=== PATIENT | female | born 1940 | race Caucasian/White ===

== ENCOUNTER → 2017-12-25 | Outpatient (CLI) | payer BC, MEDICARE ==
[~2017-12-25] MED LIST: ACET325 PO; ALPR.5; ALPR.5 PO; AMLO5 PO; ASPI81CH PO; AZO BLADDER CO300 MG PO; AZO URINARY PAI95 MG PO; Adult Low Dose81 MG PO; BISA10S PR; BISA5EC PO; BUSP10 PO; BUSP15 PO; CALCAVITD PO; CARV6.25 PO; CEPH250A PO; CHOL10002 PO; CIPR250 PO; CLON.5 PO; CLON1 PO; CLOP75 PO; Cranberry300 MG PO; DIGESTIVE ENZY1 EAC1; DOCU100 PO; DRON2.5 PO; DULO60; DULO60 PO; FAMO20 PO; FISH OIL 1,0001 EAC1 PO; FLUC150A PO; FLUO20 PO; Ferrous Sulfat325 M2 PO; GLIM2 PO; GLUCERNA237 ML; GLUCERNA237 ML PO; GUAI600T33 PO; HYDACE10B PO; HYDR1TAB94; HYDR1TAB94 PO; HYDRA25 PO; Hair, Skin & N1 EACH PO; Hydrocodone-Ap1 EA23 PO; KRILL OIL 1,001 EAC1 PO; LACT10SY PO; LEVO-T125 MCG PO; LEVSOD125 PO; LEVSOD175 PO; LOPE2C PO; LORA1SY PO; METF500 PO; METF500C PO; MIRALAX17 GM PO; MIRT15 PO; Macrobid 100 M100 MG PO; Mag-Al Liquid30 ML PO; NITR100 PO; NITR100CA PO; NYST100SU MT; OLAN2.5 PO; OLAN5 PO; OMEP20ER PO; OXYC5 PO; Omega 3 1,0001 EACH PO; Omeprazole20 M1 PO; POTCHL20ER PO; PRAV20 PO; Potassium99 MG PO; QUET25 PO; QUETIAPINE FUMA50 MG PO; TEMA15 PO; Ultram50 MG PO; VITAMIN D22000 UNIT PO
[2017-12-25 12:22] LABS: Bilirubin, Urine Neg (Neg); Blood, Urine Neg (Neg); Glucose Qualitative, Urine Neg (Neg); Ketones, Urine Neg (Neg); Leukocyte Esterase, Urine Neg (Neg); Nitrite, Urine Neg (Neg); Protein, Urine Neg (Neg); Urobilinogen, Urine NORM (Normal); pH, Urine 6.5 (5.0-8.0)
[2017-12-25 13:03] LABS: Appearance, Urine Clear (Clear); Color, Urine Yellow (P-Yellow)
== END ==
LOC: LAB 11:30
DX: R32 Unspecified urinary incontinence (principal)
CPT/HCPCS: 81003

== ENCOUNTER 2017-12-31 18:42 | Emergency (ER) | payer BC ==
[~2017-12-31] VITALS: Ht 162.6 cm; Wt 72.6 kg
[~2017-12-31 18:42] MED LIST changes: -ALPR.5 PO; -AZO BLADDER CO300 MG PO; -BISA10S PR; -BISA5EC PO; -BUSP15 PO; -CEPH250A PO; -CHOL10002 PO; -CLON1 PO; -FISH OIL 1,0001 EAC1 PO; -Ferrous Sulfat325 M2 PO; -GLUCERNA237 ML PO; -GUAI600T33 PO; -HYDR1TAB94 PO; -HYDRA25 PO; -KRILL OIL 1,001 EAC1 PO; -LORA1SY PO; -Macrobid 100 M100 MG PO; -Mag-Al Liquid30 ML PO; -QUET25 PO; -QUETIAPINE FUMA50 MG PO; -Ultram50 MG PO
[2017-12-31] MEDS ORDERED: BISA5EC PO (18:51)
[2017-12-31] MEDS ORDERED: KRILL OIL 1,001 EAC1 PO (18:53)
[2017-12-31] MEDS ORDERED: GLUCERNA237 ML PO (18:53)
[2017-12-31] MEDS ORDERED: LORA1SY PO (18:55)
[2017-12-31] MEDS ORDERED: GUAI600T33 PO (19:01)
[2017-12-31] MEDS ORDERED: CHOL10002 PO (19:02)
[2017-12-31] MEDS ORDERED: ACET325 PO (19:05)
[2017-12-31] MEDS ORDERED: ALPR.5 PO (19:06)
[2017-12-31] MEDS ORDERED: Mag-Al Liquid30 ML PO (19:14)
[2017-12-31] MEDS ORDERED: BISA10S PR (19:16)
== END 2017-12-31 21:03 | disposition home or self-care (01) ==
LOC: ER 18:42
DX: M79.81 Nontraumatic hematoma of soft tissue (principal); Z88.0 Allergy status to penicillin; Z88.1 Allergy status to other antibiotic agents; Z88.8 Allergy status to other drugs, medicaments and biological substances; Z79.899 Other long term (current) drug therapy; Z79.82 Long term (current) use of aspirin; Z79.891 Long term (current) use of opiate analgesic; Z79.84 Long term (current) use of oral hypoglycemic drugs; Z86.73 Personal history of transient ischemic attack (TIA), and cerebral infarction without residual deficits; E11.9 Type 2 diabetes mellitus without complications; F03.90 Unspecified dementia, unspecified severity, without behavioral disturbance, psychotic disturbance, mood disturbance, and anxiety
CPT/HCPCS: 29125; 73130; 99283; L3917

== ENCOUNTER → 2018-01-01 | Outpatient (CLI) | payer BC ==
[~2018-01-01] MED LIST changes: +ALPR.5 PO; +AZO BLADDER CO300 MG PO; +BISA10S PR; +BISA5EC PO; +BUSP15 PO; +CEPH250A PO; +CHOL10002 PO; +CLON1 PO; +FISH OIL 1,0001 EAC1 PO; +Ferrous Sulfat325 M2 PO; +GLUCERNA237 ML PO; +GUAI600T33 PO; +HYDR1TAB94 PO; +HYDRA25 PO; +KRILL OIL 1,001 EAC1 PO; +LORA1SY PO; +Macrobid 100 M100 MG PO; +Mag-Al Liquid30 ML PO; +QUET25 PO; +QUETIAPINE FUMA50 MG PO; +Ultram50 MG PO
[2018-01-02 10:47] LABS: Bilirubin, Urine Neg (Neg); Blood, Urine Neg (Neg); Glucose Qualitative, Urine Neg (Neg); Ketones, Urine Neg (Neg); Leukocyte Esterase, Urine 1+ (Neg); Nitrite, Urine Neg (Neg); Protein, Urine 1+ (Neg); Urobilinogen, Urine NORM (Normal)
[2018-01-02 11:00] LABS: Appearance, Urine Clear (Clear); Color, Urine Yellow (P-Yellow)
[2018-01-02 11:02] LABS: Bacteria Not Seen /hpf; Mucus Light (0-Heavy); Red Blood Cells, Urine Not Seen /hpf (0-2); Squamous Epithelial Cells Not Seen /hpf (Few); White Blood Cells, Urine 0-2 /hpf (0-5)
== END ==
LOC: OLS 09:23
DX: N39.0 Urinary tract infection, site not specified (principal)
CPT/HCPCS: 81001; 87086

== ENCOUNTER 2018-03-20 13:42 | Emergency (ER) | payer BC ==
[~2018-03-20] VITALS: Ht 167.6 cm; Wt 72.6 kg
[~2018-03-20 13:42] MED LIST changes: +AMLO5; -AZO BLADDER CO300 MG PO; -BUSP15 PO; -CEPH250A PO; -CLON1 PO; -FISH OIL 1,0001 EAC1 PO; -Ferrous Sulfat325 M2 PO; -HYDR1TAB94 PO; -HYDRA25 PO; -Macrobid 100 M100 MG PO; -QUET25 PO; -QUETIAPINE FUMA50 MG PO; -Ultram50 MG PO
[2018-03-20] MEDS ORDERED: AZO BLADDER CO300 MG PO (13:54)
[2018-03-20] MEDS ORDERED: HYDRA25 PO (13:58)
[2018-03-20] MEDS ORDERED: Ultram50 MG PO (18:59)
== END 2018-03-20 20:48 | disposition home or self-care (01) ==
LOC: ER 13:42
DX: S09.90XA Unspecified injury of head, initial encounter (principal); S42.215A Unspecified nondisplaced fracture of surgical neck of left humerus, initial encounter for closed fracture; S43.432A Superior glenoid labrum lesion of left shoulder, initial encounter; E11.9 Type 2 diabetes mellitus without complications; F03.90 Unspecified dementia, unspecified severity, without behavioral disturbance, psychotic disturbance, mood disturbance, and anxiety; Z88.0 Allergy status to penicillin; Z88.1 Allergy status to other antibiotic agents; Z88.8 Allergy status to other drugs, medicaments and biological substances; Z79.899 Other long term (current) drug therapy; Z79.82 Long term (current) use of aspirin; Z86.73 Personal history of transient ischemic attack (TIA), and cerebral infarction without residual deficits; Z79.84 Long term (current) use of oral hypoglycemic drugs; W01.0XXA Fall on same level from slipping, tripping and stumbling without subsequent striking against object, initial encounter
CPT/HCPCS: 23650; 36415; 70450; 73020; 73030; 73200; 76377; 96374; 96375; 99152; 99284; J2250; J3010

== ENCOUNTER → 2018-03-23 | Outpatient (CLI) | payer BC ==
[~2018-03-23] MED LIST changes: +AZO BLADDER CO300 MG PO; +HYDRA25 PO; +Ultram50 MG PO
[2018-03-24 09:02] LABS: Blood, Urine Neg (Neg); Glucose Qualitative, Urine Neg (Neg); Ketones, Urine 1+ (Neg); Leukocyte Esterase, Urine 1+ (Neg); Nitrite, Urine Neg (Neg); Protein, Urine 1+ (Neg); Urobilinogen, Urine NORM (Normal)
[2018-03-24 09:10] LABS: Appearance, Urine Clear (Clear); Bilirubin, Urine 1+ (Neg); Color, Urine Yellow (P-Yellow)
[2018-03-24 09:13] LABS: Bacteria Few /hpf; Calcium Oxalate Crystals Mod /hpf; Red Blood Cells, Urine Not Seen /hpf (0-2); Squamous Epithelial Cells Few /hpf (Few); White Blood Cells, Urine 0-2 /hpf (0-5)
== END | disposition home or self-care (01) ==
LOC: LAB SHORT 08:31 → OLS 08:31 → LAB SHORT 03-24 08:31
DX: N39.0 Urinary tract infection, site not specified (principal)
CPT/HCPCS: 81001; 87086

== ENCOUNTER → 2018-04-16 | Outpatient (CLI) | payer BC ==
[2018-04-16 09:00] LABS: Bilirubin, Urine Neg (Neg); Blood, Urine Neg (Neg); Glucose Qualitative, Urine Neg (Neg); Ketones, Urine Neg (Neg); Leukocyte Esterase, Urine Neg (Neg); Nitrite, Urine Neg (Neg); Protein, Urine Neg (Neg); Specific Gravity, Urine 1.015 (1.003-1.022); Urobilinogen, Urine NORM (Normal); pH, Urine 6.5 (5.0-8.0)
[2018-04-16 09:44] LABS: Appearance, Urine Clear (Clear); Color, Urine Pale Yellow (P-Yellow)
== END | disposition home or self-care (01) ==
LOC: LAB 07:27 → LAB SHORT 07:27
DX: N39.0 Urinary tract infection, site not specified (principal)
CPT/HCPCS: 81003; 87086

== ENCOUNTER 2018-05-14 00:30 | Inpatient (IN) | payer MEDICARE, BC ==
[~2018-05-14] VITALS: Ht 160 cm; Wt 73.1 kg
[2018-05-14 01:29] LABS: BASOPHILS ABSOLUTE AUTO 0.02 K/mm3 (0.00-0.23); BASOPHILS PERCENT AUTO 0 % (0-2); EOSINOPHILS ABSOLUTE AUTO 0.14 K/mm3 (0.00-0.68); EOSINOPHILS PERCENT AUTO 3 % (0-6); Hematocrit 36.9 % (33.0-51.0); Hemoglobin 11.6 g/dL (11.5-16.0); IMMATURE GRAN ABSOLUTE AUTO 0.04 K/mm3 (0.00-0.10); IMMATURE GRAN PERCENT AUTO 1 % (0-1); LYMPHOCYTES ABSOLUTE AUTO 1.22 K/mm3 (0.84-5.20); LYMPHOCYTES PERCENT AUTO 25 % (21-46); MONOCYTES ABSOLUTE AUTO 0.56 K/mm3 (0.16-1.47); MONOCYTES PERCENT AUTO 12 % (4-13); Mean Corpuscular HGB 30.1 pg (26.0-34.0); Mean Corpuscular HGB Conc 31.4 g/dL (31.5-36.5); Mean Corpuscular Volume 96 fL (80-100); Mean Platelet Volume 9.9 fL (9.1-12.4); NEUTROPHILS ABSOLUTE AUTO 2.84 K/mm3 (1.96-9.15); NEUTROPHILS PERCENT AUTO 59 % (41-73); Platelet Count 193 K/mm3 (150-400); RDW Coefficient Variation 13.4 % (11.7-14.2); RDW Standard Deviation 47.7 fL (35.1-46.3); Red Blood Cell Count 3.85 M/mm3 (3.80-5.20); White Blood Cell Count 4.82 K/mm3 (4.00-11.30)
[2018-05-14 01:44] LABS: Bun/Creatinine Ratio 21.7 (12.0-20.0); Calcium, Blood 8.8 mg/dL (8.5-10.1); Creatinine, Blood 1.06 mg/dL (0.40-1.00); Potassium, Blood 3.8 mmol/L (3.5-5.5)
[2018-05-14] MEDS ORDERED: BUSP15 PO (01:59)
[2018-05-14 02:14] LABS: Source, Urine Clean Catch
[2018-05-14 02:29] LABS: Bilirubin, Urine Neg (Neg); Blood, Urine Neg (Neg); Glucose Qualitative, Urine Neg (Neg); Ketones, Urine Neg (Neg); Leukocyte Esterase, Urine Neg (Neg); Nitrite, Urine Neg (Neg); Protein, Urine Neg (Neg); Urobilinogen, Urine NORM (Normal)
[2018-05-14 02:34] LABS: Appearance, Urine Clear (Clear); Color, Urine Yellow (P-Yellow)
[2018-05-14 04:32] LABS: Hematocrit 36.7 % (33.0-51.0); Hemoglobin 11.6 g/dL (11.5-16.0); Mean Corpuscular HGB 29.6 pg (26.0-34.0); Mean Corpuscular HGB Conc 31.6 g/dL (31.5-36.5); Mean Corpuscular Volume 94 fL (80-100); Mean Platelet Volume 10.2 fL (9.1-12.4); Platelet Count 207 K/mm3 (150-400); RDW Coefficient Variation 13.3 % (11.7-14.2); RDW Standard Deviation 46.1 fL (35.1-46.3); Red Blood Cell Count 3.92 M/mm3 (3.80-5.20); White Blood Cell Count 9.07 K/mm3 (4.00-11.30)
[2018-05-14 04:51] LABS: Albumin, Blood 3.4 g/dL (3.4-5.0); Albumin/Globulin Ratio 0.9 (0.8-1.8); Bilirubin, Total 0.4 mg/dL (0.1-1.0); Bun/Creatinine Ratio 22.9 (12.0-20.0); Calcium, Blood 8.5 mg/dL (8.5-10.1); Creatinine, Blood 0.96 mg/dL (0.40-1.00); Globulin, Blood 3.6 g/dL (2.2-4.0); Potassium, Blood 3.8 mmol/L (3.5-5.5)
[2018-05-14 09:07] LABS: International Normalized Ratio 0.96; Prothrombin Time Results 9.9 Sec (9.7-11.5)
[2018-05-15 03:59] LABS: BASOPHILS PERCENT AUTO 0 % (0-2); EOSINOPHILS PERCENT AUTO 0 % (0-6); Hematocrit 29.6 % (33.0-51.0); Hemoglobin 9.5 g/dL (11.5-16.0); IMMATURE GRAN ABSOLUTE AUTO 0.04 K/mm3 (0.00-0.10); IMMATURE GRAN PERCENT AUTO 0 % (0-1); LYMPHOCYTES ABSOLUTE AUTO 0.35 K/mm3 (0.84-5.20); LYMPHOCYTES PERCENT AUTO 4 % (21-46); MONOCYTES ABSOLUTE AUTO 0.52 K/mm3 (0.16-1.47); MONOCYTES PERCENT AUTO 6 % (4-13); Mean Corpuscular HGB Conc 32.1 g/dL (31.5-36.5); Mean Corpuscular Volume 93 fL (80-100); Mean Platelet Volume 10.1 fL (9.1-12.4); NEUTROPHILS ABSOLUTE AUTO 8.05 K/mm3 (1.96-9.15); NEUTROPHILS PERCENT AUTO 90 % (41-73); Platelet Count 172 K/mm3 (150-400); RDW Coefficient Variation 13.2 % (11.7-14.2); RDW Standard Deviation 45.8 fL (35.1-46.3); Red Blood Cell Count 3.17 M/mm3 (3.80-5.20); White Blood Cell Count 8.96 K/mm3 (4.00-11.30)
[2018-05-16 05:23] LABS: BASOPHILS ABSOLUTE AUTO 0.01 K/mm3 (0.00-0.23); BASOPHILS PERCENT AUTO 0 % (0-2); EOSINOPHILS ABSOLUTE AUTO 0.03 K/mm3 (0.00-0.68); EOSINOPHILS PERCENT AUTO 0 % (0-6); Hematocrit 26.9 % (33.0-51.0); Hemoglobin 8.7 g/dL (11.5-16.0); IMMATURE GRAN ABSOLUTE AUTO 0.02 K/mm3 (0.00-0.10); IMMATURE GRAN PERCENT AUTO 0 % (0-1); LYMPHOCYTES PERCENT AUTO 18 % (21-46); MONOCYTES ABSOLUTE AUTO 0.68 K/mm3 (0.16-1.47); MONOCYTES PERCENT AUTO 10 % (4-13); Mean Corpuscular HGB 30.3 pg (26.0-34.0); Mean Corpuscular HGB Conc 32.3 g/dL (31.5-36.5); Mean Corpuscular Volume 94 fL (80-100); Mean Platelet Volume 10.3 fL (9.1-12.4); NEUTROPHILS ABSOLUTE AUTO 4.83 K/mm3 (1.96-9.15); NEUTROPHILS PERCENT AUTO 72 % (41-73); Platelet Count 170 K/mm3 (150-400); RDW Coefficient Variation 13.7 % (11.7-14.2); RDW Standard Deviation 46.9 fL (35.1-46.3); Red Blood Cell Count 2.87 M/mm3 (3.80-5.20); White Blood Cell Count 6.77 K/mm3 (4.00-11.30)
[2018-05-17 13:51] LABS: BASOPHILS ABSOLUTE AUTO 0.02 K/mm3 (0.00-0.23); BASOPHILS PERCENT AUTO 0 % (0-2); EOSINOPHILS ABSOLUTE AUTO 0.06 K/mm3 (0.00-0.68); EOSINOPHILS PERCENT AUTO 1 % (0-6); Hematocrit 32.5 % (33.0-51.0); Hemoglobin 10.5 g/dL (11.5-16.0); IMMATURE GRAN ABSOLUTE AUTO 0.03 K/mm3 (0.00-0.10); IMMATURE GRAN PERCENT AUTO 0 % (0-1); LYMPHOCYTES ABSOLUTE AUTO 0.93 K/mm3 (0.84-5.20); LYMPHOCYTES PERCENT AUTO 12 % (21-46); MONOCYTES ABSOLUTE AUTO 0.57 K/mm3 (0.16-1.47); MONOCYTES PERCENT AUTO 7 % (4-13); Mean Corpuscular HGB 29.8 pg (26.0-34.0); Mean Corpuscular HGB Conc 32.3 g/dL (31.5-36.5); Mean Corpuscular Volume 92 fL (80-100); NEUTROPHILS ABSOLUTE AUTO 6.19 K/mm3 (1.96-9.15); NEUTROPHILS PERCENT AUTO 79 % (41-73); RDW Coefficient Variation 13.7 % (11.7-14.2); RDW Standard Deviation 46.3 fL (35.1-46.3); Red Blood Cell Count 3.52 M/mm3 (3.80-5.20)
[2018-05-17 13:53] LABS: Mean Platelet Volume 10.1 fL (9.1-12.4); Platelet Count 175 K/mm3 (150-400)
[2018-05-17 15:08] LABS: Anion Gap 12 mmol/L (6-16); Blood Urea Nitrogen 16 mg/dL (8-24); Bun/Creatinine Ratio 19.3 (12.0-20.0); CO2, Blood 25 mmol/L (21-32); Calcium, Blood 8.5 mg/dL (8.5-10.1); Chloride, Blood 106 mmol/L (98-108); Creatinine, Blood 0.83 mg/dL (0.40-1.00); Glomerular Filtration Rate >60 (60-); Glucose, Blood 153 mg/dL (70-99); Potassium, Blood 3.6 mmol/L (3.5-5.5); Sodium, Blood 143 mmol/L (136-145)
[2018-05-18 04:43] LABS: BASOPHILS ABSOLUTE AUTO 0.02 K/mm3 (0.00-0.23); BASOPHILS PERCENT AUTO 0 % (0-2); EOSINOPHILS ABSOLUTE AUTO 0.15 K/mm3 (0.00-0.68); EOSINOPHILS PERCENT AUTO 2 % (0-6); Hemoglobin 9.3 g/dL (11.5-16.0); IMMATURE GRAN ABSOLUTE AUTO 0.03 K/mm3 (0.00-0.10); IMMATURE GRAN PERCENT AUTO 0 % (0-1); LYMPHOCYTES ABSOLUTE AUTO 1.05 K/mm3 (0.84-5.20); LYMPHOCYTES PERCENT AUTO 13 % (21-46); MONOCYTES ABSOLUTE AUTO 0.61 K/mm3 (0.16-1.47); MONOCYTES PERCENT AUTO 8 % (4-13); Mean Corpuscular HGB 30.4 pg (26.0-34.0); Mean Corpuscular HGB Conc 32.1 g/dL (31.5-36.5); NEUTROPHILS PERCENT AUTO 77 % (41-73); Platelet Count 190 K/mm3 (150-400); RDW Coefficient Variation 13.9 % (11.7-14.2); RDW Standard Deviation 48.5 fL (35.1-46.3); Red Blood Cell Count 3.06 M/mm3 (3.80-5.20); White Blood Cell Count 7.96 K/mm3 (4.00-11.30)
[2018-05-18 04:45] LABS: Mean Corpuscular Volume 95 fL (80-100)
[2018-05-18 05:15] LABS: Bun/Creatinine Ratio 17.6 (12.0-20.0); Calcium, Blood 8.4 mg/dL (8.5-10.1); Creatinine, Blood 1.36 mg/dL (0.40-1.00); Potassium, Blood 3.8 mmol/L (3.5-5.5)
[2018-05-18 14:49] LABS: Source, Urine Catheter
[2018-05-18 14:56] LABS: Appearance, Urine Cloudy (Clear); Blood, Urine 4+ (Neg); Color, Urine Yellow (P-Yellow); Glucose Qualitative, Urine Neg (Neg); Ketones, Urine 1+ (Neg); Leukocyte Esterase, Urine 3+ (Neg); Nitrite, Urine Pos (Neg); Protein, Urine 3+ (Neg); Urobilinogen, Urine 1+ (Normal)
[2018-05-18 15:04] LABS: Bilirubin, Urine 1+ (Neg)
[2018-05-18 15:06] LABS: Bacteria Many /hpf; Squamous Epithelial Cells Few /hpf (Few); White Blood Cells, Urine TNTC /hpf (0-5)
[2018-05-19 05:25] LABS: BASOPHILS ABSOLUTE AUTO 0.03 K/mm3 (0.00-0.23); BASOPHILS PERCENT AUTO 1 % (0-2); EOSINOPHILS ABSOLUTE AUTO 0.23 K/mm3 (0.00-0.68); EOSINOPHILS PERCENT AUTO 4 % (0-6); Hematocrit 27.2 % (33.0-51.0); Hemoglobin 8.4 g/dL (11.5-16.0); IMMATURE GRAN ABSOLUTE AUTO 0.04 K/mm3 (0.00-0.10); IMMATURE GRAN PERCENT AUTO 1 % (0-1); LYMPHOCYTES ABSOLUTE AUTO 1.06 K/mm3 (0.84-5.20); LYMPHOCYTES PERCENT AUTO 18 % (21-46); MONOCYTES ABSOLUTE AUTO 0.48 K/mm3 (0.16-1.47); MONOCYTES PERCENT AUTO 8 % (4-13); Mean Corpuscular HGB 29.6 pg (26.0-34.0); Mean Corpuscular HGB Conc 30.9 g/dL (31.5-36.5); Mean Corpuscular Volume 96 fL (80-100); Mean Platelet Volume 10.4 fL (9.1-12.4); NEUTROPHILS ABSOLUTE AUTO 3.93 K/mm3 (1.96-9.15); NEUTROPHILS PERCENT AUTO 68 % (41-73); Platelet Count 198 K/mm3 (150-400); RDW Coefficient Variation 14.1 % (11.7-14.2); RDW Standard Deviation 49.3 fL (35.1-46.3); Red Blood Cell Count 2.84 M/mm3 (3.80-5.20); White Blood Cell Count 5.77 K/mm3 (4.00-11.30)
[2018-05-19 05:46] LABS: Bun/Creatinine Ratio 27.8 (12.0-20.0); Calcium, Blood 8.2 mg/dL (8.5-10.1); Creatinine, Blood 1.15 mg/dL (0.40-1.00); Magnesium, Blood 2.1 mg/dL (1.6-2.4); Potassium, Blood 3.8 mmol/L (3.5-5.5)
== END 2018-05-20 11:26 | DRG 470 ==
LOC: ER 00:30 → SURS 01:41
PROVIDERS: Emergency Medicine; Internal Medicine; Orthopaedic Surgery
PROC: 0SRR0JA Replacement of Right Hip Joint, Femoral Surface with Synthetic Substitute, Uncemented, Open Approach (ICD-10-PCS; principal; 2018-05-14 16:15)
DX: S72.001A Fracture of unspecified part of neck of right femur, initial encounter for closed fracture (principal); I69.354 Hemiplegia and hemiparesis following cerebral infarction affecting left non-dominant side; F03.91 Unspecified dementia, unspecified severity, with behavioral disturbance; F05 Delirium due to known physiological condition; N39.0 Urinary tract infection, site not specified; E11.9 Type 2 diabetes mellitus without complications; S00.93XA Contusion of unspecified part of head, initial encounter; S80.01XA Contusion of right knee, initial encounter; F32.9 Major depressive disorder, single episode, unspecified; E03.9 Hypothyroidism, unspecified; I10 Essential (primary) hypertension; W19.XXXA Unspecified fall, initial encounter; Y92.002 Bathroom of unspecified non-institutional (private) residence as the place of occurrence of the external cause; Z79.01 Long term (current) use of anticoagulants; Z88.0 Allergy status to penicillin; Z88.1 Allergy status to other antibiotic agents; Z88.8 Allergy status to other drugs, medicaments and biological substances; Z79.899 Other long term (current) drug therapy; Z79.84 Long term (current) use of oral hypoglycemic drugs; Z79.82 Long term (current) use of aspirin; Z90.12 Acquired absence of left breast and nipple; Z90.710 Acquired absence of both cervix and uterus
CPT/HCPCS: 36415; 51702; 70450; 72170; 73502; 73560-RT; 80048; 80053; 81001; 81003; 82947; 83735; 85025; 85027; 85610; 85730; 87077; 87086; 87186; 88305; 88311; 93005; 93010; 96374; 96376; 97110; 97116; 97162; 97165; 97530; 97535; 99285-25; C1776; G8978; G8979; G8987; G8988; J0171; J0360; J0696; J0735; J1100; J1630; J1650; J1885; J2001; J2250; J2370; J2405; J2710; J2795; J3010; J3486; J7030; J7120

== ENCOUNTER 2018-06-29 15:21 | Emergency (ER) | payer BC ==
[~2018-06-29] VITALS: Ht 157.5 cm; Wt 70.3 kg
[~2018-06-29 15:21] MED LIST changes: -AMLO5; +BUSP15 PO
[2018-06-29 16:00] LABS: BASOPHILS ABSOLUTE AUTO 0.01 K/mm3 (0.00-0.23); BASOPHILS PERCENT AUTO 0 % (0-2); EOSINOPHILS ABSOLUTE AUTO 0.15 K/mm3 (0.00-0.68); EOSINOPHILS PERCENT AUTO 3 % (0-6); Hematocrit 37.1 % (33.0-51.0); Hemoglobin 11.7 g/dL (11.5-16.0); IMMATURE GRAN ABSOLUTE AUTO 0.01 K/mm3 (0.00-0.10); IMMATURE GRAN PERCENT AUTO 0 % (0-1); LYMPHOCYTES PERCENT AUTO 18 % (21-46); MONOCYTES ABSOLUTE AUTO 0.45 K/mm3 (0.16-1.47); MONOCYTES PERCENT AUTO 9 % (4-13); Mean Corpuscular HGB 30.1 pg (26.0-34.0); Mean Corpuscular HGB Conc 31.5 g/dL (31.5-36.5); Mean Corpuscular Volume 95 fL (80-100); Mean Platelet Volume 9.9 fL (9.1-12.4); NEUTROPHILS ABSOLUTE AUTO 3.43 K/mm3 (1.96-9.15); NEUTROPHILS PERCENT AUTO 69 % (41-73); Platelet Count 227 K/mm3 (150-400); RDW Coefficient Variation 13.2 % (11.7-14.2); RDW Standard Deviation 46.1 fL (35.1-46.3); Red Blood Cell Count 3.89 M/mm3 (3.80-5.20); White Blood Cell Count 4.95 K/mm3 (4.00-11.30)
[2018-06-29 16:19] LABS: Albumin, Blood 3.3 g/dL (3.4-5.0); Albumin/Globulin Ratio 0.8 (0.8-1.8); Bilirubin, Total 0.2 mg/dL (0.1-1.0); Bun/Creatinine Ratio 20.3 (12.0-20.0); Calcium, Blood 8.5 mg/dL (8.5-10.1); Creatinine, Blood 0.99 mg/dL (0.40-1.00); Globulin, Blood 4.2 g/dL (2.2-4.0); Potassium, Blood 3.9 mmol/L (3.5-5.5); Total Protein, Blood 7.5 g/dL (6.4-8.2)
[2018-06-29] MEDS ORDERED: QUETIAPINE FUMA50 MG PO (16:20)
[2018-06-29] MEDS ORDERED: Ferrous Sulfat325 M2 PO (16:21)
[2018-06-29] MEDS ORDERED: FISH OIL 1,0001 EAC1 PO (16:22)
[2018-06-29 16:35] LABS: Source, Urine Catheter
[2018-06-29 16:40] LABS: Bilirubin, Urine Neg (Neg); Blood, Urine Neg (Neg); Glucose Qualitative, Urine Neg (Neg); Ketones, Urine Neg (Neg); Leukocyte Esterase, Urine Neg (Neg); Nitrite, Urine Neg (Neg); Protein, Urine Neg (Neg); Specific Gravity, Urine 1.015 (1.003-1.022); Urobilinogen, Urine NORM (Normal)
[2018-06-29 17:07] LABS: Appearance, Urine Clear (Clear); Color, Urine Yellow (P-Yellow)
[2018-06-29] MEDS ORDERED: QUET25 PO (17:21)
== END 2018-06-29 18:04 | disposition home or self-care (01) ==
LOC: ER 15:21
PROVIDERS: Emergency Medicine
DX: F03.90 Unspecified dementia, unspecified severity, without behavioral disturbance, psychotic disturbance, mood disturbance, and anxiety (principal); F32.9 Major depressive disorder, single episode, unspecified; E11.9 Type 2 diabetes mellitus without complications; Z88.0 Allergy status to penicillin; Z88.8 Allergy status to other drugs, medicaments and biological substances; Z79.899 Other long term (current) drug therapy; Z79.82 Long term (current) use of aspirin; Z79.01 Long term (current) use of anticoagulants
CPT/HCPCS: 36415; 80053; 81003; 85025; 99285; P9612

== ENCOUNTER → 2018-07-16 | Outpatient (CLI) | payer BC ==
[~2018-07-16] MED LIST changes: +CEPH250A PO; +CLON1 PO; +FISH OIL 1,0001 EAC1 PO; +Ferrous Sulfat325 M2 PO; +HYDR1TAB94 PO; +QUET25 PO; +QUETIAPINE FUMA50 MG PO
[2018-07-16 12:45] LABS: Appearance, Urine Hazy (Clear); Bilirubin, Urine Neg (Neg); Blood, Urine 1+ (Neg); Color, Urine Yellow (P-Yellow); Glucose Qualitative, Urine Neg (Neg); Ketones, Urine Neg (Neg); Leukocyte Esterase, Urine 3+ (Neg); Nitrite, Urine Neg (Neg); Protein, Urine 1+ (Neg); Specific Gravity, Urine 1.015 (1.003-1.022); Urobilinogen, Urine NORM (Normal)
[2018-07-16 13:29] LABS: White Blood Cells, Urine 50-100 /hpf (0-5)
[2018-07-16 13:30] LABS: Bacteria Many /hpf; Squamous Epithelial Cells Few /hpf (Few); Transitional Epithelial Cells Few /hpf (0-Rare)
== END | disposition home or self-care (01) ==
LOC: LAB SHORT 11:00 → LAB 11:00
DX: N39.0 Urinary tract infection, site not specified (principal)
CPT/HCPCS: 81001; 87077; 87086; 87186

== ENCOUNTER 2018-07-18 15:27 | Emergency (ER) | payer BC ==
[~2018-07-18] VITALS: Ht 157.5 cm; Wt 67.1 kg
[~2018-07-18 15:27] MED LIST changes: -CEPH250A PO; -CLON1 PO; -HYDR1TAB94 PO
[2018-07-18] MEDS ORDERED: CLON1 PO (16:19)
[2018-07-18] MEDS ORDERED: CEPH250A PO (16:19)
[2018-07-18] MEDS ORDERED: HYDR1TAB94 PO (17:53)
== END 2018-07-18 19:39 | disposition home or self-care (01) ==
LOC: ER 15:27
DX: S73.004A Unspecified dislocation of right hip, initial encounter (principal); E11.9 Type 2 diabetes mellitus without complications; F03.90 Unspecified dementia, unspecified severity, without behavioral disturbance, psychotic disturbance, mood disturbance, and anxiety; Z86.73 Personal history of transient ischemic attack (TIA), and cerebral infarction without residual deficits; Z88.0 Allergy status to penicillin; Z88.1 Allergy status to other antibiotic agents; Z88.8 Allergy status to other drugs, medicaments and biological substances; Z79.899 Other long term (current) drug therapy; Z79.82 Long term (current) use of aspirin; Z79.01 Long term (current) use of anticoagulants; W19.XXXA Unspecified fall, initial encounter
CPT/HCPCS: 27265; 73501; 73502; 96374; 99152; 99284-25; J3010; J7030

== ENCOUNTER 2018-08-05 11:48 | Emergency (ER) | payer BC ==
[~2018-08-05] VITALS: Ht 157.5 cm; Wt 67.1 kg
[~2018-08-05 11:48] MED LIST changes: +CEPH250A PO; +CLON1 PO; +HYDR1TAB94 PO
[2018-08-05] MEDS ORDERED: LACT10SY PO (12:06)
[2018-08-05 12:21] LABS: BASOPHILS ABSOLUTE AUTO 0.03 K/mm3 (0.00-0.23); BASOPHILS PERCENT AUTO 1 % (0-2); EOSINOPHILS ABSOLUTE AUTO 0.12 K/mm3 (0.00-0.68); EOSINOPHILS PERCENT AUTO 2 % (0-6); Hematocrit 40.3 % (33.0-51.0); Hemoglobin 12.5 g/dL (11.5-16.0); IMMATURE GRAN ABSOLUTE AUTO 0.02 K/mm3 (0.00-0.10); IMMATURE GRAN PERCENT AUTO 0 % (0-1); LYMPHOCYTES ABSOLUTE AUTO 0.94 K/mm3 (0.84-5.20); LYMPHOCYTES PERCENT AUTO 16 % (21-46); MONOCYTES ABSOLUTE AUTO 0.51 K/mm3 (0.16-1.47); MONOCYTES PERCENT AUTO 9 % (4-13); Mean Corpuscular HGB 29.1 pg (26.0-34.0); Mean Corpuscular Volume 94 fL (80-100); Mean Platelet Volume 9.6 fL (9.1-12.4); NEUTROPHILS ABSOLUTE AUTO 4.23 K/mm3 (1.96-9.15); NEUTROPHILS PERCENT AUTO 72 % (41-73); Platelet Count 291 K/mm3 (150-400); RDW Coefficient Variation 13.6 % (11.7-14.2); RDW Standard Deviation 46.7 fL (35.1-46.3); White Blood Cell Count 5.85 K/mm3 (4.00-11.30)
[2018-08-05 12:39] LABS: Anion Gap 7 mmol/L (6-16); Blood Urea Nitrogen 25 mg/dL (8-24); Bun/Creatinine Ratio 26.8 (12.0-20.0); CO2, Blood 25 mmol/L (21-32); Calcium, Blood 8.8 mg/dL (8.5-10.1); Chloride, Blood 106 mmol/L (98-108); Creatinine, Blood 0.93 mg/dL (0.40-1.00); Glomerular Filtration Rate >60 (60-); Glucose, Blood 148 mg/dL (70-99); Potassium, Blood 4.1 mmol/L (3.5-5.5); Sodium, Blood 138 mmol/L (136-145); Troponin I <0.015 ng/mL (0.000-0.040)
[2018-08-05 13:36] LABS: Appearance, Urine Clear (Clear); Bilirubin, Urine Neg (Neg); Blood, Urine Neg (Neg); Color, Urine Yellow (P-Yellow); Glucose Qualitative, Urine Neg (Neg); Ketones, Urine Neg (Neg); Leukocyte Esterase, Urine 1+ (Neg); Nitrite, Urine Neg (Neg); Protein, Urine 1+ (Neg); Urobilinogen, Urine NORM (Normal)
[2018-08-05 13:52] LABS: Bacteria Few /hpf; Red Blood Cells, Urine 0-2 /hpf (0-2); Squamous Epithelial Cells Few /hpf (Few)
[2018-08-05] MEDS ORDERED: Macrobid 100 M100 MG PO (14:50)
== END 2018-08-05 16:37 | disposition home or self-care (01) ==
LOC: ER 11:48
PROVIDERS: Emergency Medicine
DX: F03.90 Unspecified dementia, unspecified severity, without behavioral disturbance, psychotic disturbance, mood disturbance, and anxiety (principal); N39.0 Urinary tract infection, site not specified; R40.0 Somnolence; T36.95XA Adverse effect of unspecified systemic antibiotic, initial encounter; F41.9 Anxiety disorder, unspecified; E86.0 Dehydration; E11.9 Type 2 diabetes mellitus without complications; Z88.0 Allergy status to penicillin; Z88.8 Allergy status to other drugs, medicaments and biological substances; Z79.899 Other long term (current) drug therapy; Z79.82 Long term (current) use of aspirin; Z79.01 Long term (current) use of anticoagulants; Z86.73 Personal history of transient ischemic attack (TIA), and cerebral infarction without residual deficits
CPT/HCPCS: 36415; 71045; 80048; 81001; 84484; 85025; 87077; 87086; 87186; 93005; 93010; 96360; 99284-25; J7030; P9612

== ENCOUNTER 2018-12-03 19:27 | Emergency (ER) | payer BC ==
[~2018-12-03] VITALS: Ht 157.5 cm; Wt 63.5 kg
[~2018-12-03 19:27] MED LIST changes: +Macrobid 100 M100 MG PO
[2018-12-03 20:25] LABS: BASOPHILS ABSOLUTE AUTO 0.03 K/mm3 (0.00-0.23); BASOPHILS PERCENT AUTO 1 % (0-2); EOSINOPHILS ABSOLUTE AUTO 0.17 K/mm3 (0.00-0.68); EOSINOPHILS PERCENT AUTO 3 % (0-6); Hematocrit 41.6 % (33.0-51.0); IMMATURE GRAN ABSOLUTE AUTO 0.01 K/mm3 (0.00-0.10); IMMATURE GRAN PERCENT AUTO 0 % (0-1); LYMPHOCYTES ABSOLUTE AUTO 1.44 K/mm3 (0.84-5.20); LYMPHOCYTES PERCENT AUTO 28 % (21-46); MONOCYTES ABSOLUTE AUTO 0.46 K/mm3 (0.16-1.47); MONOCYTES PERCENT AUTO 9 % (4-13); Mean Corpuscular HGB 28.9 pg (26.0-34.0); Mean Corpuscular HGB Conc 31.3 g/dL (31.5-36.5); Mean Corpuscular Volume 92 fL (80-100); Mean Platelet Volume 9.9 fL (9.1-12.4); NEUTROPHILS ABSOLUTE AUTO 2.97 K/mm3 (1.96-9.15); NEUTROPHILS PERCENT AUTO 59 % (41-73); Platelet Count 238 K/mm3 (150-400); RDW Coefficient Variation 14.8 % (11.7-14.2); RDW Standard Deviation 50.5 fL (35.1-46.3); White Blood Cell Count 5.08 K/mm3 (4.00-11.30)
[2018-12-03 20:42] LABS: Alanine Aminotransfer (ALT/SGP 12 U/L (12-78); Albumin, Blood 3.8 g/dL (3.4-5.0); Albumin/Globulin Ratio 0.9 (0.8-1.8); Alk Phos 62 U/L (50-136); Anion Gap 7 mmol/L (6-16); Aspartate Aminotrans (AST/SGOT 11 U/L (12-37); Bilirubin, Total 0.4 mg/dL (0.1-1.0); Blood Urea Nitrogen 17 mg/dL (8-24); Bun/Creatinine Ratio 18.8 (12.0-20.0); CO2, Blood 27 mmol/L (21-32); Calcium, Blood 9.3 mg/dL (8.5-10.1); Chloride, Blood 104 mmol/L (98-108); Globulin, Blood 4.1 g/dL (2.2-4.0); Glomerular Filtration Rate >60 (60-); Glucose, Blood 113 mg/dL (70-99); Potassium, Blood 3.9 mmol/L (3.5-5.5); Sodium, Blood 138 mmol/L (136-145); Total Protein, Blood 7.9 g/dL (6.4-8.2)
[2018-12-03 23:02] LABS: Source, Urine Clean Catch
[2018-12-03 23:04] LABS: Bilirubin, Urine Neg (Neg); Blood, Urine Neg (Neg); Glucose Qualitative, Urine Neg (Neg); Ketones, Urine Neg (Neg); Leukocyte Esterase, Urine 1+ (Neg); Nitrite, Urine Neg (Neg); Protein, Urine 1+ (Neg); Urobilinogen, Urine NORM (Normal)
[2018-12-03 23:13] LABS: Appearance, Urine Clear (Clear); Color, Urine Yellow (P-Yellow)
[2018-12-03 23:14] LABS: Red Blood Cells, Urine Rare /hpf (0-2); Squamous Epithelial Cells Rare /hpf (Few); White Blood Cells, Urine 0-2 /hpf (0-5)
[2018-12-03 23:15] LABS: Bacteria Few /hpf
[2018-12-03] MEDS ORDERED: CVS DISPOSABLE399 ML PR (23:41)
[2018-12-03] MEDS ORDERED: CITRATE OF MAG296 ML PO (23:41)
== END 2018-12-04 00:13 | disposition home or self-care (01) ==
LOC: ER 19:27
PROVIDERS: Emergency Medicine
DX: K59.00 Constipation, unspecified (principal); E11.9 Type 2 diabetes mellitus without complications; F03.90 Unspecified dementia, unspecified severity, without behavioral disturbance, psychotic disturbance, mood disturbance, and anxiety; Z88.0 Allergy status to penicillin; Z88.1 Allergy status to other antibiotic agents; Z88.8 Allergy status to other drugs, medicaments and biological substances; Z79.899 Other long term (current) drug therapy; Z79.82 Long term (current) use of aspirin; Z86.73 Personal history of transient ischemic attack (TIA), and cerebral infarction without residual deficits
CPT/HCPCS: 36415; 74019; 74176; 80053; 81001; 83690; 85025; 87086; 93005; 93010; 99284-25

== ENCOUNTER → 2019-03-07 | Outpatient (CLI) | payer BC ==
[~2019-03-07] MED LIST changes: +CITRATE OF MAG296 ML PO; +CVS DISPOSABLE399 ML PR
[2019-03-07 13:54] LABS: BASOPHILS ABSOLUTE AUTO 0.01 K/mm3 (0.00-0.23); BASOPHILS PERCENT AUTO 0 % (0-2); EOSINOPHILS ABSOLUTE AUTO 0.05 K/mm3 (0.00-0.68); EOSINOPHILS PERCENT AUTO 1 % (0-6); Hematocrit 37.9 % (33.0-51.0); Hemoglobin 12.2 g/dL (11.5-16.0); IMMATURE GRAN ABSOLUTE AUTO 0.02 K/mm3 (0.00-0.10); IMMATURE GRAN PERCENT AUTO 0 % (0-1); LYMPHOCYTES ABSOLUTE AUTO 0.75 K/mm3 (0.84-5.20); LYMPHOCYTES PERCENT AUTO 16 % (21-46); MONOCYTES ABSOLUTE AUTO 0.36 K/mm3 (0.16-1.47); MONOCYTES PERCENT AUTO 8 % (4-13); Mean Corpuscular HGB 29.9 pg (26.0-34.0); Mean Corpuscular HGB Conc 32.2 g/dL (31.5-36.5); Mean Corpuscular Volume 93 fL (80-100); Mean Platelet Volume 10.1 fL (9.1-12.4); NEUTROPHILS ABSOLUTE AUTO 3.58 K/mm3 (1.96-9.15); NEUTROPHILS PERCENT AUTO 75 % (41-73); Platelet Count 195 K/mm3 (150-400); RDW Coefficient Variation 13.7 % (11.7-14.2); RDW Standard Deviation 46.5 fL (35.1-46.3); Red Blood Cell Count 4.08 M/mm3 (3.80-5.20); White Blood Cell Count 4.77 K/mm3 (4.00-11.30)
[2019-03-07 14:05] LABS: Bun/Creatinine Ratio 23.5 (12.0-20.0); Calcium, Blood 8.7 mg/dL (8.5-10.1); Creatinine, Blood 1.02 mg/dL (0.40-1.00); Potassium, Blood 4.1 mmol/L (3.5-5.5)
== END | disposition home or self-care (01) ==
LOC: LAB SHORT 13:48 → LAB EV 13:48
PROVIDERS: Physician Assistant Surgical
DX: R42 Dizziness and giddiness (principal)
CPT/HCPCS: 80048; 85025

== ENCOUNTER → 2019-03-24 | Outpatient (CLI) | payer BC | END | disposition home or self-care (01) | LOC: LAB SHORT 08:40 → LAB EV 08:40 | DX: R30.0 Dysuria (principal) | CPT/HCPCS: 87086 ==

== ENCOUNTER 2019-05-04 14:31 | Emergency (ER) | payer BC ==
[~2019-05-04] VITALS: Ht 152.4 cm; Wt 56.2 kg
[~2019-05-04 14:31] MED LIST changes: -CLON1 PO
[2019-05-04 16:15] LABS: BASOPHILS ABSOLUTE AUTO 0.02 K/mm3 (0.00-0.23); BASOPHILS PERCENT AUTO 1 % (0-2); EOSINOPHILS ABSOLUTE AUTO 0.11 K/mm3 (0.00-0.68); EOSINOPHILS PERCENT AUTO 3 % (0-6); Hematocrit 39.1 % (33.0-51.0); Hemoglobin 12.3 g/dL (11.5-16.0); IMMATURE GRAN ABSOLUTE AUTO 0.01 K/mm3 (0.00-0.10); IMMATURE GRAN PERCENT AUTO 0 % (0-1); LYMPHOCYTES ABSOLUTE AUTO 0.93 K/mm3 (0.84-5.20); LYMPHOCYTES PERCENT AUTO 23 % (21-46); MONOCYTES ABSOLUTE AUTO 0.36 K/mm3 (0.16-1.47); MONOCYTES PERCENT AUTO 9 % (4-13); Mean Corpuscular HGB 31.1 pg (26.0-34.0); Mean Corpuscular HGB Conc 31.5 g/dL (31.5-36.5); Mean Corpuscular Volume 99 fL (80-100); Mean Platelet Volume 10.1 fL (9.1-12.4); NEUTROPHILS ABSOLUTE AUTO 2.57 K/mm3 (1.96-9.15); NEUTROPHILS PERCENT AUTO 64 % (41-73); Platelet Count 199 K/mm3 (150-400); RDW Coefficient Variation 14.8 % (11.7-14.2); RDW Standard Deviation 54.3 fL (35.1-46.3); Red Blood Cell Count 3.96 M/mm3 (3.80-5.20)
[2019-05-04 16:44] LABS: Bun/Creatinine Ratio 27.4 (12.0-20.0); Calcium, Blood 9.1 mg/dL (8.5-10.1); Creatinine, Blood 1.06 mg/dL (0.40-1.00); Potassium, Blood 3.9 mmol/L (3.5-5.5)
[2019-05-04 16:46] LABS: Thyroid Stimulating Hormone 1.39 uIU/mL (0.360-4.800)
[2019-05-04 17:28] LABS: Source, Urine Clean Catch
[2019-05-04 17:40] LABS: Bilirubin, Urine Neg (Neg); Blood, Urine Neg (Neg); Glucose Qualitative, Urine Neg (Neg); Ketones, Urine 1+ (Neg); Leukocyte Esterase, Urine 1+ (Neg); Nitrite, Urine Neg (Neg); Protein, Urine 2+ (Neg); Urobilinogen, Urine 1+ (Normal)
[2019-05-04 18:42] LABS: Appearance, Urine Hazy (Clear); Color, Urine Yellow (P-Yellow)
[2019-05-04 18:45] LABS: Bacteria Rare /hpf; Calcium Oxalate Crystals Mod /hpf; Red Blood Cells, Urine 0-2 /hpf (0-2); Squamous Epithelial Cells Few /hpf (Few)
== END 2019-05-04 17:25 | disposition home or self-care (01) ==
LOC: ER 14:31
PROVIDERS: Emergency Medicine; Physician Assistant
DX: F41.9 Anxiety disorder, unspecified (principal); F32.9 Major depressive disorder, single episode, unspecified; E11.9 Type 2 diabetes mellitus without complications; Z86.73 Personal history of transient ischemic attack (TIA), and cerebral infarction without residual deficits; F03.90 Unspecified dementia, unspecified severity, without behavioral disturbance, psychotic disturbance, mood disturbance, and anxiety; Z88.0 Allergy status to penicillin; Z88.8 Allergy status to other drugs, medicaments and biological substances; Z88.1 Allergy status to other antibiotic agents; Z79.899 Other long term (current) drug therapy; Z79.82 Long term (current) use of aspirin
CPT/HCPCS: 80048; 81001; 84443; 85025; 87086; 99283

== ENCOUNTER 2019-06-10 17:23 | Inpatient (IN) | payer MEDICARE, BC ==
[~2019-06-10] VITALS: Ht 157.5 cm; Wt 55.0 kg
[2019-06-10 18:01] LABS: BASOPHILS ABSOLUTE AUTO 0.03 K/mm3 (0.00-0.23); BASOPHILS PERCENT AUTO 1 % (0-2); EOSINOPHILS ABSOLUTE AUTO 0.14 K/mm3 (0.00-0.68); EOSINOPHILS PERCENT AUTO 3 % (0-6); Hematocrit 36.7 % (33.0-51.0); Hemoglobin 11.6 g/dL (11.5-16.0); IMMATURE GRAN ABSOLUTE AUTO 0.01 K/mm3 (0.00-0.10); IMMATURE GRAN PERCENT AUTO 0 % (0-1); LYMPHOCYTES ABSOLUTE AUTO 1.12 K/mm3 (0.84-5.20); LYMPHOCYTES PERCENT AUTO 21 % (21-46); MONOCYTES ABSOLUTE AUTO 0.49 K/mm3 (0.16-1.47); MONOCYTES PERCENT AUTO 9 % (4-13); Mean Corpuscular HGB 31.4 pg (26.0-34.0); Mean Corpuscular HGB Conc 31.6 g/dL (31.5-36.5); Mean Corpuscular Volume 100 fL (80-100); Mean Platelet Volume 9.3 fL (9.1-12.4); NEUTROPHILS ABSOLUTE AUTO 3.44 K/mm3 (1.96-9.15); NEUTROPHILS PERCENT AUTO 66 % (41-73); Platelet Count 252 K/mm3 (150-400); RDW Coefficient Variation 13.6 % (11.7-14.2); RDW Standard Deviation 49.8 fL (35.1-46.3); Red Blood Cell Count 3.69 M/mm3 (3.80-5.20); White Blood Cell Count 5.23 K/mm3 (4.00-11.30)
[2019-06-10 18:16] LABS: International Normalized Ratio 0.95; Prothrombin Time Results 10.1 Sec (9.7-11.5)
[2019-06-10 18:23] LABS: Albumin, Blood 3.5 g/dL (3.4-5.0); Albumin/Globulin Ratio 0.9 (0.8-1.8); Bilirubin, Total 0.2 mg/dL (0.1-1.0); Bun/Creatinine Ratio 31.4 (12.0-20.0); Calcium, Blood 9.1 mg/dL (8.5-10.1); Creatinine, Blood 1.02 mg/dL (0.40-1.00); Globulin, Blood 3.7 g/dL (2.2-4.0); Potassium, Blood 4.3 mmol/L (3.5-5.5); Total Protein, Blood 7.2 g/dL (6.4-8.2)
[2019-06-10] MEDS ORDERED: VALACYCLOVIR1000 MG PO (19:08)
[2019-06-10] MEDS ORDERED: PANT20 PO (19:09)
[2019-06-10] MEDS ORDERED: Bentyl20 MG PO (19:09)
[2019-06-10] MEDS ORDERED: METF500 PO (19:10)
[2019-06-10] MEDS ORDERED: DULO60 PO (19:10)
[2019-06-10] MEDS ORDERED: Buspirone HCl15 MG PO (19:13)
[2019-06-10] MEDS ORDERED: TRAZ100 PO (19:14)
[2019-06-10 20:03] LABS: Source, Urine Voided
[2019-06-10 20:09] LABS: Bilirubin, Urine Neg (Neg); Blood, Urine Neg (Neg); Glucose Qualitative, Urine Neg (Neg); Ketones, Urine 1+ (Neg); Leukocyte Esterase, Urine 1+ (Neg); Nitrite, Urine Neg (Neg); Protein, Urine 1+ (Neg); Specific Gravity, Urine 1.015 (1.003-1.022); Urobilinogen, Urine NORM (Normal)
[2019-06-10 20:14] LABS: Appearance, Urine Clear (Clear); Color, Urine Yellow (P-Yellow)
[2019-06-10 20:15] LABS: Hyaline Casts 0-2 /lpf (0-2)
[2019-06-10 20:16] LABS: Bacteria Few /hpf; Red Blood Cells, Urine 0-2 /hpf (0-2); Squamous Epithelial Cells Not Seen /hpf (Few); White Blood Cells, Urine 0-2 /hpf (0-5)
[2019-06-10] MEDS ORDERED: Clonazepam0.5 MG PO (20:21)
--- NOTE | 2019-06-11 01:04 | NUR ---
0020 PT ADMITTED TO ROOM 345 PER CART AND PLACED ON CONTACT ISOLATION FOR SHINGLES--LEFT LOWER BACK. SUICIDE PRECAUTIONS IN PLACE. CONSENT OBTAINED FROM PT FOR PHOTO OF SHINGLES.
--- NOTE | 2019-06-11 05:17 | NUR ---
SHIFT SUMMARY: 79 Y/O FEMALE RESTED COMFORTABLY ALL SHIFT, NO SUICIDAL IDEATIONS EXPRESSSED, ABLE TO EXPRESS NEEDS AND ASKED FOR BEDPAN APPROPRIATELY, DENIES PAIN OR NAUSEA, CONTACT PRECAUTIONS IN PLACE DUE TO SHINGLES ON LEFT LOWER BACK (SEE PHOTO), ALERT PERSON ONLY, BED ALARM APPLIED, BED LOW POSITION, CALL LIGHT AT SIDE.
--- NOTE | 2019-06-11 09:01 | NUR ---
remote monitor call to remote monitor annie to confirm camera on in room. per annie camera on and patient resting in bed.
--- NOTE | 2019-06-11 15:08 | NUR ---
Pt had difficulty communicating her thoughts. She states, "I have a storm inside" and talks about having anxiety. Pt not able to pinpoint why she is experiencing her emotional pain. Pt talks about wanting to talk to her CG [facility]. I called [facility]. She stated the CG is out of town at this point, but explained that the pt's son Dayne will be visiting the pt after work. Message was relayed to pt and RN. Active listening and affirmation provided.
--- NOTE | 2019-06-11 17:57 | NUR ---
SHIFT SUMMARY PATIENT INCREASINGLY AGITATED DAY WENT ON. PATIENT WORKED WITH PT/OT. UP WITH ONE ASSIST AND CRISTINA WALKER. PATIENT REFUSES TO HAVE GAIT BELT PUT ON. PATIENT BECAME COMBATIVE AND CONTINUES TO TRY AND GET OUT OF CHAIR AND LEAVE ROOM. PATIENT ON SI PRECAUTIONS AND DROPLET PRECAUTIONS FOR SHINGLES. PATIETN EDUCATED ABOUT WHY SHE CANNOT LEAVE HER ROOM. PATIENT CONFUSED AND REFUSING ORAL MEDICATIONS. DR. BRYAN INFORMED, ORDERS FOR ONE TIME HALDOL GIVEN. PATIENT CONTINUES TO BE AGITATED AFTER THE HALDOL. PATIENT'S SON CHIRAG VISITED WITH PATIENT THIS EVENING. CALL LIGHT IN REACH. SI PRECAUTIONS CONTINUE. REMOTE MONITORING IN PLACE.
--- NOTE | 2019-06-12 01:20 | NUR ---
06/11/19 190 THIS NURSE ARRIVED ON UNIT AND RECEIVED REPORT, PT VERY AGITATED, REFUSING TO SIT IN CHAIR OR LAY IN BED (ATTEMPTING TO FREQUENTLY STAND UP), ALERT PERSON ONLY, ASSISTED BACK TO BED, ATIVAN 1MG IVP GIVEN, SANDY VEST AND 3 POINT SOFT RESTRAINTS APPLIED (NONE APPLIED TO FLACCID LEFT ARM). 06/12/19 0115 PT YELLING OUT LOUDLY AND ATTEMPTING CLIMB OOB WHILE PULLING AT RESTRAINTS, ATIVAN 1MG IVP GIVEN, MEPLEX DRESSING APPLIED COCCYX X 2 ASSIST AND REPOSITIONED IN BED.
--- NOTE | 2019-06-12 04:36 | NUR ---
SHIFT SUMMARY: 79 Y/O FEMALE HAD VERY RESTLESS NIGHT FIRST 1/2 OF SHIFT WITH PATIENT REQUIRING SANDY/SOFT WRIST RESTRAINTS-NONE TO FLACCID LEFT ARM AFTER PT BECAME AGITATED AND ATTEMPTED CLIMB OOB REPEATLY AND UNABLE TO FOLLOW REDIRECTIONS FROM NURSING STAFF, RECEIVED ATIVAN 1MG IVP X 2 (LAST DOSAGE AT 0106) WITH PATIENT FINALLY ABLE TO SLEEP REST OF SHIFT COMFORTABLY, ALERT TO PERSON ONLY, COCCYX SLIGHTLY REDDENED WITH MEPLEX DRESSING APPLIED TO SITE, SUICIDAL PRECAUTIONS FOLLOWED, CONTACT PRECAUTIONS FOR SHINGLES LEFT LOWER BACK INTACT, DENIES PAIN/NAUSEA, BED ALARM APPLIED, BED LOW POSITION, CALL LIGHT AT SIDE.
--- NOTE | 2019-06-12 17:34 | NUR ---
PATIENT REMAINS VERY CONFUSED AND COMBATIVE AT TIMES. SHE WILL OFTEN CALL OUT FOR FAMILY MEMBERS AND WILL OFTEN FORGET INFORMATION STAFF GIVES HER REGARDING THEM. SHE IS UNAWARE OF HER OWN LIMITATIONS. HER LEFT SIDE IS FLACID AND NOT IN A RESTRAINT . SHE HAS BEEN UP IN THE CHAIR BUT CONTINUES TO TRY TO STAND UP AND WILL SWING AT STAFF THEY TRY TO ASSIST HER . GIVEN IM ATIVAN WHICH HAS NOT DONE MUCH TO CALM PATIENTS AGGITATION. WILL MEDICATE PER EMAR.
[2019-06-13 05:00] LABS: BASOPHILS ABSOLUTE AUTO 0.01 K/mm3 (0.00-0.23); BASOPHILS PERCENT AUTO 0 % (0-2); EOSINOPHILS ABSOLUTE AUTO 0.11 K/mm3 (0.00-0.68); EOSINOPHILS PERCENT AUTO 3 % (0-6); Hematocrit 39.5 % (33.0-51.0); Hemoglobin 12.6 g/dL (11.5-16.0); IMMATURE GRAN ABSOLUTE AUTO 0.01 K/mm3 (0.00-0.10); IMMATURE GRAN PERCENT AUTO 0 % (0-1); LYMPHOCYTES ABSOLUTE AUTO 1.09 K/mm3 (0.84-5.20); LYMPHOCYTES PERCENT AUTO 26 % (21-46); MONOCYTES ABSOLUTE AUTO 0.52 K/mm3 (0.16-1.47); MONOCYTES PERCENT AUTO 13 % (4-13); Mean Corpuscular HGB 31.3 pg (26.0-34.0); Mean Corpuscular HGB Conc 31.9 g/dL (31.5-36.5); Mean Corpuscular Volume 98 fL (80-100); Mean Platelet Volume 9.8 fL (9.1-12.4); NEUTROPHILS ABSOLUTE AUTO 2.42 K/mm3 (1.96-9.15); NEUTROPHILS PERCENT AUTO 58 % (41-73); Platelet Count 217 K/mm3 (150-400); RDW Coefficient Variation 13.2 % (11.7-14.2); RDW Standard Deviation 47.3 fL (35.1-46.3); Red Blood Cell Count 4.03 M/mm3 (3.80-5.20); White Blood Cell Count 4.16 K/mm3 (4.00-11.30)
[2019-06-13 05:16] LABS: Alanine Aminotransfer (ALT/SGP 14 U/L (12-78); Albumin, Blood 3.6 g/dL (3.4-5.0); Albumin/Globulin Ratio 0.9 (0.8-1.8); Alk Phos 63 U/L (50-136); Anion Gap 6 mmol/L (6-16); Aspartate Aminotrans (AST/SGOT 15 U/L (12-37); Bilirubin, Total 0.4 mg/dL (0.1-1.0); Blood Urea Nitrogen 20 mg/dL (8-24); Bun/Creatinine Ratio 21.6 (12.0-20.0); CO2, Blood 30 mmol/L (21-32); Calcium, Blood 9.3 mg/dL (8.5-10.1); Chloride, Blood 106 mmol/L (98-108); Creatinine, Blood 0.93 mg/dL (0.40-1.00); Globulin, Blood 3.8 g/dL (2.2-4.0); Glomerular Filtration Rate >60 (60-); Glucose, Blood 123 mg/dL (70-99); Potassium, Blood 3.7 mmol/L (3.5-5.5); Sodium, Blood 142 mmol/L (136-145); Total Protein, Blood 7.4 g/dL (6.4-8.2)
--- NOTE | 2019-06-13 06:34 | NUR ---
06/13/19 0610 AWAKENED FOR AM MED. CHEERFUL AND COOPERATIVE WITH CARE. REPOSITIONED AND ALL EXTREMITIES RELEASED FROM RESTRAINTS FOR FEW MINUTIES FOR BRIEF CHANGE AND RE-CARE. DENTURES BRUSHED AND LEFT IN CUP UNTIL BREAKFAST TIME. UNEVENTFUL NIGHT. VITALS STABLE.
--- NOTE | 2019-06-13 17:53 | NUR ---
PATIENT APPEARS TO BE MUCH CALMER THIS SHIFT. FAMILY HAS BEEN IN AND THIS NURSE EXPLAINED THE 2MD HOLD ON THE PATIENT PATIENTS FAMILY BEGAN TO GET FRUSTRATED THAT THEY COULD NOT TAKE THIER MOTHER HOME TODAY. FAMILY APPEARED TO ACCEPT THE REASONING. PATIENT HAS IMPROVED MENTATION THIS SHIFT, OFTEN TALKING WITH NURSE AFTER FAMILY LEFT. MEDICATIONS WERE UPDATED. NO ACUTE ISSUES THIS SHIFT.
--- NOTE | 2019-06-14 04:28 | NUR ---
06/14/19 0410 PT WOKE UP YELLING FOR "HEMA" AND TRYING TO GET OUT OF BED--HANGING LEGS OVER EDGE OF BED. WHEN RN APPROACHED SHE STARTED PUNCHING RN AND ATTEMPTING TO KICK, RE-ORIENTED TO SURROUNDINGS. SOFT RESTRAINTS RE-APPLIED TO ANKLES AND RT WRIST FOR SAFETY.
--- NOTE | 2019-06-14 04:39 | NUR ---
06/14/19 0415 NO VOID THIS SHIFT. BLADDER SCAN = 123 ML. ABDOMEN SOFT. NEW ATTENDS APPLIED AFTER RE-CARE. ATTEMPTED ORAL CARE BUT PT TOO COMBATIVE AND RESISTANT.
--- NOTE | 2019-06-14 06:21 | NUR ---
06/14/19 0618 PT KICKED OFF BED LINEN AND REFUSED ANY ORAL INTAKE AT THIS TIME, INCLUDING MED. WILL NOTIFY DAY SHIFT RN ABOUT REFUSAL. VITALS STABLE. RESTRAINTS MAINTAINED FOR PATIENT SAFETY. REPOSITIONED Q 2 HOURS WITH PILLOWS.
--- NOTE | 2019-06-14 16:51 | NUR ---
PT A/OX3, SLOW TO RESPOND AT TIMES, THE PT APPEARS TO BE BREATHING EASILY ON RA AT THIS TIME, TODAY THE PT WAS UP WITH THE PHYSICAL THERAPIST TO THE CHAIR, THE PT REPORTED THAT SHE FELT LIGHT HEADED, BP WAS TAKEN THE PTS SBP WAS IN THE 70'S AT THAT TIME, THE PT WAS ASSISTED TO THE BED BP WAS RETAKEN THE BP WAS 108/64 HR 84, PT WAS ENCOURAGED TO DRINK MORE FLIUDS, PTS FAMILY WAS AT THE BEDSIDE, THE PT WAS TAKEN OUT OF RESTRAINTS AND SO FAR THIS SHIFT HAS BEEN PLEASANT AND COOPERATIVE, FLUID RESUSITATION WAS STARTED, PLAN FOR THE PT IS TO BE CD'D TO HOME [place], CALL LIGHT IN REACH, BED ALARM ON
--- NOTE | 2019-06-14 20:00 | NUR ---
06/14/191934 CHAIR ALARM SOUNDING PT TRYING TO GET UP. RN ASSISTED HER TO BED AND BED ALARM ON. ALL RESTRAINTS WERE REMOVED ON DAY SHIFT THIS AM. PT HAS BEEN COOPERATIVE PRIOR..
--- NOTE | 2019-06-14 23:50 | NUR ---
06/14/192014 SUICIDAL PRECAUTIONS IN EFFECT INCLUDING CONSTANT VIDEO MONITORING.
--- NOTE | 2019-06-15 05:05 | NUR ---
06/15/19 0500 AWAKENED FOR VITALS AND PT BECAME ANGRY AND PUSHING SOCIAL MEDIA EDITOR AWAY. "LEAVE ME ALONE!" "YOU CAN TAKE MY BLOOD PRESSURE IN THE MORNING1"
[2019-06-15 05:12] LABS: BASOPHILS ABSOLUTE AUTO 0.01 K/mm3 (0.00-0.23); BASOPHILS PERCENT AUTO 0 % (0-2); EOSINOPHILS ABSOLUTE AUTO 0.17 K/mm3 (0.00-0.68); EOSINOPHILS PERCENT AUTO 3 % (0-6); Hematocrit 34.9 % (33.0-51.0); IMMATURE GRAN ABSOLUTE AUTO 0.02 K/mm3 (0.00-0.10); IMMATURE GRAN PERCENT AUTO 0 % (0-1); LYMPHOCYTES ABSOLUTE AUTO 1.13 K/mm3 (0.84-5.20); LYMPHOCYTES PERCENT AUTO 21 % (21-46); MONOCYTES ABSOLUTE AUTO 0.57 K/mm3 (0.16-1.47); MONOCYTES PERCENT AUTO 11 % (4-13); Mean Corpuscular HGB 31.4 pg (26.0-34.0); Mean Corpuscular HGB Conc 31.5 g/dL (31.5-36.5); Mean Corpuscular Volume 100 fL (80-100); Mean Platelet Volume 9.8 fL (9.1-12.4); NEUTROPHILS ABSOLUTE AUTO 3.38 K/mm3 (1.96-9.15); NEUTROPHILS PERCENT AUTO 64 % (41-73); Platelet Count 180 K/mm3 (150-400); RDW Coefficient Variation 13.6 % (11.7-14.2); RDW Standard Deviation 49.6 fL (35.1-46.3); White Blood Cell Count 5.28 K/mm3 (4.00-11.30)
[2019-06-15 05:37] LABS: Magnesium, Blood 2.4 mg/dL (1.6-2.4)
[2019-06-15 05:39] LABS: Albumin/Globulin Ratio 0.9 (0.8-1.8); Bilirubin, Total 0.4 mg/dL (0.1-1.0); Bun/Creatinine Ratio 10.5 (12.0-20.0); Calcium, Blood 8.9 mg/dL (8.5-10.1); Creatinine, Blood 3.51 mg/dL (0.40-1.00); Globulin, Blood 3.5 g/dL (2.2-4.0); Total Protein, Blood 6.5 g/dL (6.4-8.2)
--- NOTE | 2019-06-15 05:53 | NUR ---
06/15/19 0530 PT AWAKE AND YELLING FOR "ARMIDA" AND "HEMA". RE-ORIENTED TO SURROUNDINGS BUT CONTINUES TO CALL OUT. ASSISTED UP TO BS FOR VOIDING OF 125 ML OF CLEAR YELLOW URINE. ASSISTED BACK TO BED AND BED ALARM ON. SHE HAS BEEN OFF RESTRAINTS ALL SHIFT. SHE IS STILL IMPULSIVE IN GETTING OUT OF BED.
[2019-06-15 14:28] LABS: Source, Urine Clean Catch
[2019-06-15 15:14] LABS: Bilirubin, Urine Neg (Neg); Blood, Urine 1+ (Neg); Glucose Qualitative, Urine Neg (Neg); Ketones, Urine Neg (Neg); Leukocyte Esterase, Urine 3+ (Neg); Nitrite, Urine Neg (Neg); Protein, Urine 2+ (Neg); Urobilinogen, Urine NORM (Normal)
[2019-06-15 15:47] LABS: Appearance, Urine Clear (Clear); Color, Urine Pale Yellow (P-Yellow)
[2019-06-15 15:48] LABS: White Blood Cells, Urine 25-50 /hpf (0-5)
[2019-06-15 15:49] LABS: Amorphous Mod (0-Heavy); Bacteria Many /hpf; Red Blood Cells, Urine 0-2 /hpf (0-2); Squamous Epithelial Cells Few /hpf (Few)
[2019-06-15 15:50] LABS: Transitional Epithelial Cells Rare /hpf (0-Rare)
--- NOTE | 2019-06-15 16:13 | NUR ---
PT IS ALERT, DISOIRIENTED AND HAVING VISUAL HALUCINATIONS TODAY, MORE DISORIENTED TODAY COMPARED TO YESTERDAY, THE PT IS UP TO THE CHAIR AND THE BSC WITH 1 ASSIST, THE PT WAS UP THIS AFTERNOON AND AMBULATED DOWN THE [place], THE PT WAS UP INTO THE CHAIR OFF AND ON T/O DAY, THE PT APPEARS TO BE BREATHING EASILY ON RA, FAMILY WAS IN TO SIT WITH THE PT TODAY, THE PT WAS ASSISTED WITH HER MEALS, CALL LIGHT IN REACH, CHAIR ALARM AND BAD ALARM IN USE, THE PT WAS TAKEN OFF A 2 MD HOLD FOR SI TODAY
--- NOTE | 2019-06-15 19:00 | NUR ---
LATE ENTRY THE PTS DAUGHTER- IN- LAW CALLED THE HOSPITAL REQUESTING TO HAVE THE PT TRANSFERED TO [facility], REPORTED TO THE PEARL RESTORER THAT THEY FELT THAT THE PT WAS DECLINING , I CALLED THE DAUGHTER- IN- LAW BACK TO EXPLAIN THAT I THOUGHT THAT THERE MAY HAVE BEEN A MISUNDERSTANDING WITH JEAN-CLAUDE KIRK THE CAREGIVER AND I, THE PTS SON AND DAUGHTER AT THAT TIME AGREED TO HAVE THE PT STAY OVER NIGHT TO SEE IF ANY IMPROVEMENT OF THE PTS CONDITION HAD OCCURED AND THAT I WOULD ASK DR. CONNORS TO CONTACT AND SPEAK WITH THEM SOON POSSIBLE IN THE AM
[2019-06-15 20:21] LABS: Eosinophils-Raw #,Urine 0
[2019-06-15 20:22] LABS: White Blood Cells Urine 25-50 /hpf (0-5)
--- NOTE | 2019-06-15 21:53 | NUR ---
PT WAS VERY AGITATED AND ANXIOUS AT START OF SHIFT. SHE WAS HALLUCINATING, REACHING OUT FOR SOMETHING NOT THERE, AND CALLING OUT FOR HER DOG AND FAMILY MEMBERS. WHEN THE PT COULD NOT BE REORIENTED OR KEPT FROM CLIMBING OUT OF BED, SHE WAS PUT IN A SANDY VEST RESTRAINT TO KEEP HER SAFE. PT REFUSED TO TAKE HER BEDTIME MEDICATIONS, AND THIS RN CALLED HER DAUGHTER. SHE SUGGESTED A DIFFERENT NURSE TRY AFTER LETTING THE PT CALM DOWN.
[2019-06-16 05:24] LABS: BASOPHILS ABSOLUTE AUTO 0.01 K/mm3 (0.00-0.23); BASOPHILS PERCENT AUTO 0 % (0-2); EOSINOPHILS ABSOLUTE AUTO 0.11 K/mm3 (0.00-0.68); EOSINOPHILS PERCENT AUTO 3 % (0-6); Hematocrit 35.6 % (33.0-51.0); Hemoglobin 11.1 g/dL (11.5-16.0); IMMATURE GRAN PERCENT AUTO 0 % (0-1); LYMPHOCYTES ABSOLUTE AUTO 1.03 K/mm3 (0.84-5.20); LYMPHOCYTES PERCENT AUTO 26 % (21-46); MONOCYTES ABSOLUTE AUTO 0.39 K/mm3 (0.16-1.47); MONOCYTES PERCENT AUTO 10 % (4-13); Mean Corpuscular HGB Conc 31.2 g/dL (31.5-36.5); Mean Corpuscular Volume 99 fL (80-100); Mean Platelet Volume 10.1 fL (9.1-12.4); NEUTROPHILS ABSOLUTE AUTO 2.39 K/mm3 (1.96-9.15); NEUTROPHILS PERCENT AUTO 61 % (41-73); Platelet Count 190 K/mm3 (150-400); RDW Coefficient Variation 13.3 % (11.7-14.2); RDW Standard Deviation 48.8 fL (35.1-46.3); Red Blood Cell Count 3.58 M/mm3 (3.80-5.20); White Blood Cell Count 3.93 K/mm3 (4.00-11.30)
[2019-06-16 05:52] LABS: Albumin, Blood 3.2 g/dL (3.4-5.0); Albumin/Globulin Ratio 0.8 (0.8-1.8); Bilirubin, Total 0.3 mg/dL (0.1-1.0); Bun/Creatinine Ratio 14.5 (12.0-20.0); Calcium, Blood 9.3 mg/dL (8.5-10.1); Creatinine, Blood 2.56 mg/dL (0.40-1.00); Globulin, Blood 3.8 g/dL (2.2-4.0)
--- NOTE | 2019-06-16 06:19 | NUR ---
SHIFT SUMMARY PT IS A 79 Y/O FEMALE, ADMITTED WITH GENERALIZED WEAKNESS. SHE IS A&O X SELF ONLY, WITH AUDIO AND VISUAL HALLUCINATIONS. WHEN AWAKE, PT ALSO CALLS OUT FOR FAMILY MEMBERS AND HER DOG SPORADICALLY. PT WAS VERY AGITATED AT START OF SHIFT, AND WAS PLACED IN A SANDY TO PREVENT ANY HARM TO HERSELF (SEE PREVIOUS NOTE). SHE DID FALL ASLEEP AFTER RECEIVING HER BEDTIME MEDS, AND SLEPT WELL THROUGH THE NIGHT. PT'S BP WAS ELEVATED DURING THE NIGHT IN THE 160S SYSTOLICALLY. ALL OTHER VITALS STABLE. PT ON CONTINUOUS IV FLUIDS, NORMAL SALINE AT 75 ML/HR. NO OTHER ACUTE CHANGES IN PT CONDITION NOTED. WILL CONTINUE TO MONITOR AND TREAT PER EMAR UNTIL HAND OFF TO DAY SHIFT RN.
--- NOTE | 2019-06-16 15:23 | NUR ---
DISPLACED LEFT SHOULDER IT WAS BROUGHT TO ATTENTION BY THE PHYSICAL THERAPIST TODAY THAT THE PTS LEFT SHOULDER WAS PARTIALY DISPLACED, WHEN TALKING TO THE FAMILY THEY REPORTED THAT THE PTS LEFT SHOULDER HAD BEEN THAT WAY FOR APROX. 2 YEARS AND THAT IT WAS NOT REPAIRABLE AND THAT THEY HAD DISCONTINUED THE USE OF THE SLING
--- NOTE | 2019-06-16 17:49 | NUR ---
PT IS ALERT, CONFUSED, ORIENTED TO SELF AND PLACE, THE PT IS UP WITH 1 ASSIST USEING THE CRISTINA WALKER, THIS AM DR. CONNORS TALKED WITH THE THE FAMILY THEY REQUESTED, THE PT REMAINED HERE T/O THE DAY, THIS AM THE PT WAS SOMEWHAT AGITATED AND ANXIOUS, PRN ZYPREXA WAS GIVEN X1 TODAY, THE PT THEN BECAME CALM AND THE SANDY VEST RESTRAINT WAS REMOVED AND REMAINED OFF T/O THE DAY, THE PT WAS UP TO VOID X3 TODAY, THE PT AMBULATED INTO THE BATHROOM X1, THE FAMILY BROUGHT IN THE PTS DOG WHICH HELPED IN RELIEVING SOME OF THE PTS ANXIETY, AT TIMES THE PT GETS IRRITABLE WITH THE STAFF BUT HAS BEEN EASILY REDIRECTED AND CALMED, THIS AFTERNOON THE PTS FAMILY WAS CONCERNED THAT IT APPEARED THE PTS FACIAL DROOP AND LEFT LEG WEAKNESS WERE MORE PROMINENT COMPARED TO YESTERDAY, DR. CONNORS WAS NOTIFIED AND A CT OF THE HEAD WAS ORDERED TO R/O RECURRENT CVA, BED ALARM TOOL DESIGN DRAFTER LIGHT IN REACH, WILL CONTINUE TO MONITOR AND ASSESS FOR CHANGES
--- NOTE | 2019-06-17 05:04 | NUR ---
PT BECOMING ANXIOUS AND CLIMBING OUT OF BED. PRN ZYPREXA NOT IMPROVING S/S. ALSO PT COMPLAINING OF ABD PAIN. CALLED TO HOSPITALIST RECIEVED ORDER FOR SANDY AND GI COCKTAIL.
[2019-06-17 05:37] LABS: BASOPHILS ABSOLUTE AUTO 0.02 K/mm3 (0.00-0.23); BASOPHILS PERCENT AUTO 1 % (0-2); EOSINOPHILS ABSOLUTE AUTO 0.14 K/mm3 (0.00-0.68); EOSINOPHILS PERCENT AUTO 4 % (0-6); Hematocrit 38.6 % (33.0-51.0); Hemoglobin 11.9 g/dL (11.5-16.0); IMMATURE GRAN ABSOLUTE AUTO 0.01 K/mm3 (0.00-0.10); IMMATURE GRAN PERCENT AUTO 0 % (0-1); LYMPHOCYTES ABSOLUTE AUTO 1.12 K/mm3 (0.84-5.20); LYMPHOCYTES PERCENT AUTO 28 % (21-46); MONOCYTES ABSOLUTE AUTO 0.37 K/mm3 (0.16-1.47); MONOCYTES PERCENT AUTO 9 % (4-13); Mean Corpuscular HGB Conc 30.8 g/dL (31.5-36.5); Mean Corpuscular Volume 101 fL (80-100); NEUTROPHILS ABSOLUTE AUTO 2.37 K/mm3 (1.96-9.15); NEUTROPHILS PERCENT AUTO 59 % (41-73); RDW Coefficient Variation 13.4 % (11.7-14.2); RDW Standard Deviation 50.4 fL (35.1-46.3); Red Blood Cell Count 3.84 M/mm3 (3.80-5.20); White Blood Cell Count 4.03 K/mm3 (4.00-11.30)
[2019-06-17 05:39] LABS: Mean Platelet Volume 10.2 fL (9.1-12.4); Platelet Count 180 K/mm3 (150-400)
[2019-06-17 05:54] LABS: Albumin, Blood 3.2 g/dL (3.4-5.0); Albumin/Globulin Ratio 0.8 (0.8-1.8); Bilirubin, Total 0.3 mg/dL (0.1-1.0); Bun/Creatinine Ratio 18.1 (12.0-20.0); Calcium, Blood 9.6 mg/dL (8.5-10.1); Creatinine, Blood 1.55 mg/dL (0.40-1.00); Globulin, Blood 3.9 g/dL (2.2-4.0); Potassium, Blood 3.8 mmol/L (3.5-5.5); Total Protein, Blood 7.1 g/dL (6.4-8.2)
--- NOTE | 2019-06-17 06:34 | NUR ---
NOC SHIFT SUMMARY PT HAS HX OF DEMENTIA AND WAS ADMITTED FOR SUICIDAL IDEATION. PER DR LAWRENCE HOLD IS NO LONGER IN PLACE. PT IS CONFUSED AND ANXIOUS THIS SHIFT. FELL TO SLEEP SHORTLY AFTER EVENING MED PASS. AWOKE ANXIOUS AT APPROX 0330 SHE WANTED TO MOVE TO THE RECLINER AND WAS HELPED TO DO SO. GAVE PRN ZYPREXA WELL. THIS DID NOT HELP. PT CONTINUED TO TRY TO GET OUT OF RECLINER AND BED. SHE IS A STRONG FALL RISK. OBTAINED ORDER FOR SANDY VEST. PT COPLAINED OF LL QUAD ABD PAIN. CALLED TO HOSPITALIST. OBTAINED ORDER FOR GI COCKTAIL. PT REFUSING TO TAKE ANYTHING BY MOUTH. CALLED BACK TO HOSPITALIST AND EXPLAINED THIS. NO FURTHER ORDERS GIVEN.
--- NOTE | 2019-06-17 17:56 | NUR ---
SHIFT SUMMARY: NO ACUTE CHANGES TO REPORT THSI SHIFT. PT HX DEMENTIA; ALERT; ORIENTED TO SELF AND FAMILY; OCCASIONALLY UNCOOPERATIVE WITH CARE. MEDICATED FOR PAIN PER EMAR; PT ALSO COMPLAINING OF ABD PAIN - CALLED DR AND GOT ORDERS FOR BOWEL CARE - PT TOOK PO STOOL SOFTENER & LAXATIVE. PT IS HIGH FALL RISK; SANDY VEST IN PLACE T/O SHIFT. GENTLE IV REHYDRATION & IV ABX CONTINUING. WCTM.
[2019-06-18 05:08] LABS: BASOPHILS ABSOLUTE AUTO 0.01 K/mm3 (0.00-0.23); BASOPHILS PERCENT AUTO 0 % (0-2); EOSINOPHILS ABSOLUTE AUTO 0.08 K/mm3 (0.00-0.68); EOSINOPHILS PERCENT AUTO 2 % (0-6); Hematocrit 35.7 % (33.0-51.0); Hemoglobin 11.5 g/dL (11.5-16.0); IMMATURE GRAN ABSOLUTE AUTO 0.01 K/mm3 (0.00-0.10); IMMATURE GRAN PERCENT AUTO 0 % (0-1); LYMPHOCYTES ABSOLUTE AUTO 0.94 K/mm3 (0.84-5.20); LYMPHOCYTES PERCENT AUTO 19 % (21-46); MONOCYTES ABSOLUTE AUTO 0.53 K/mm3 (0.16-1.47); MONOCYTES PERCENT AUTO 11 % (4-13); Mean Corpuscular HGB 31.5 pg (26.0-34.0); Mean Corpuscular HGB Conc 32.2 g/dL (31.5-36.5); Mean Platelet Volume 9.7 fL (9.1-12.4); NEUTROPHILS ABSOLUTE AUTO 3.49 K/mm3 (1.96-9.15); NEUTROPHILS PERCENT AUTO 69 % (41-73); Platelet Count 195 K/mm3 (150-400); RDW Coefficient Variation 13.1 % (11.7-14.2); RDW Standard Deviation 47.1 fL (35.1-46.3); Red Blood Cell Count 3.65 M/mm3 (3.80-5.20); White Blood Cell Count 5.06 K/mm3 (4.00-11.30)
[2019-06-18 05:18] LABS: Mean Corpuscular Volume 98 fL (80-100)
[2019-06-18 05:31] LABS: Albumin, Blood 3.4 g/dL (3.4-5.0); Albumin/Globulin Ratio 0.8 (0.8-1.8); Bilirubin, Total 0.3 mg/dL (0.1-1.0); Bun/Creatinine Ratio 16.7 (12.0-20.0); Calcium, Blood 9.2 mg/dL (8.5-10.1); Creatinine, Blood 1.14 mg/dL (0.40-1.00); Magnesium, Blood 1.6 mg/dL (1.6-2.4); Potassium, Blood 3.6 mmol/L (3.5-5.5); Total Protein, Blood 7.4 g/dL (6.4-8.2)
--- NOTE | 2019-06-18 07:20 | NUR ---
NOC SHIFT SUMMARY PATIENT WITH DEMENTIA, GENERALIZED WEAKNESS, AND ARF REALATED TO MEDICATIONS. SHE IS CONFUSED AND ANXIOUS THIS NIGHT. TOOK EVENING MEDS AND AN ADDITIONAL 2 DOSES OF PRN SEROQUEL. PT ONLY SLEPT A SHORT TIME THIS NIGHT. SPENT MUCH OF THE NIGHT AWAKE AND ANXOUS CALLING OUT AND ATTEMPTING TO GET OUT OF BED. SHE IS IN A SANDY SHE IS A STRONG FALL RISK. ORDER FOR RESTRAINT RENEWED THIS MORNING. SHE HAS ATTEMPTED TO HIT AND BITE STAFF. SHE REFUSED 0600 MORNING MED. VSS. REPORT TO ONCOMING RN.
[2019-06-18 11:00] LABS: Phosphorus, Blood 2.9 mg/dL (2.5-4.9)
[2019-06-18 11:29] LABS: Phosphorus, Blood 3.2 mg/dL (2.5-4.9)
--- NOTE | 2019-06-18 19:07 | NUR ---
SHIFT SUMMARY: NO ACUTE CHANGES TO REPORT THIS SHIFT. PT HX DEMENTIA; ALERT; ORIENTED TO SELF AND FAMILY. HX CVA c L SIDE DEFICITS; L ARM FLACCIDCKD S3; DR LANE FOLLOWING. AWAITING PLACEMENT; ASSESSMENT TODAY BY PERSONNEL FROM [facility] HENDRIX; AWAITING OUTCOME. REPORT GIVEN TO ONCOMING RN.
--- NOTE | 2019-06-19 05:19 | NUR ---
PT IS ALERT AND ORIENTED TO SELF ONLY. PT HAD NO COMPLAINTS OF PAIN DURING THE SHIFT. PT'S SANDY VEST AT 0453. VSS. THE PT HAS NOT ATTEMPTED TO GET OUT OF BED THIS SHIFT, SO THIS RN IS TRIALING THE PT WITHOUT RESTRAINTS. BED ALARM IS ON AND 3 SIDE RAILS UP. WILL CONTINUE TO MONITOR PT.
--- NOTE | 2019-06-19 08:15 | NUR ---
PT PLEASANT COOP ALERT TO SELF, FAMILY, DOG. , AGE. ABLE TO TELL ME PRESIDENT AFTER ABOUT 2 MINUTES. FOLLOWS COMMANDS WELL. ANXIOUS ABOUT CARE FOR DOG. H/R REG, NO MURMER NOTED. NO TELE. LUNGS CLEAR RESP EASY, UNLABORED. ON R/A. BT X4 LAST BM 2 DAYS. VOIDS INCONT. IN ATTENDS. BED IN LOW POSITION, CALL LITE IN REACH, BED ALARM ON FOR SAFETY
--- NOTE | 2019-06-19 17:13 | NUR ---
PT VERY PLEASANT TODAY. HAS BEEN CONCERNED ABOUT DOG. SPOKE TO DAUGHTER HEMA. SHE WATCHING DOG. WILL NOT BE IN TODAY. SHE EXPECTS TO HAVE SON CALL HER TONITE. HAS BEEN TO CHAIR MUCH TODAY. SOME BACK PAIN. MEDICATED. NO OTHER CONCERNS AT THIS TIME. BED IN LOW POSITION, CALL LITE IN REACH, CALLS APPROP
--- NOTE | 2019-06-20 03:56 | NUR ---
SHIFT SUMMARY PT REMAINS ORIENTED TO SELF ONLY AND REMAINS ANXIOUS MOST OF THE TIME. PT DID COMPLAIN OF HIP PAIN, TYLENOL WAS GIVEN TO GOOD EFFECT. PT'S VSS. PT HAD GOOD URINE OUTPUT, AND REMAINS INCONTINENT AT TIMES. BED IN LOW POSITION, BED ALARM ACTIVE. WILL CONTINUE TO MONITOR PT.
[2019-06-20 05:15] LABS: BASOPHILS ABSOLUTE AUTO 0.02 K/mm3 (0.00-0.23); BASOPHILS PERCENT AUTO 1 % (0-2); EOSINOPHILS ABSOLUTE AUTO 0.16 K/mm3 (0.00-0.68); EOSINOPHILS PERCENT AUTO 5 % (0-6); Hematocrit 33.7 % (33.0-51.0); Hemoglobin 10.8 g/dL (11.5-16.0); IMMATURE GRAN ABSOLUTE AUTO 0.01 K/mm3 (0.00-0.10); IMMATURE GRAN PERCENT AUTO 0 % (0-1); LYMPHOCYTES ABSOLUTE AUTO 1.16 K/mm3 (0.84-5.20); LYMPHOCYTES PERCENT AUTO 35 % (21-46); MONOCYTES ABSOLUTE AUTO 0.46 K/mm3 (0.16-1.47); MONOCYTES PERCENT AUTO 14 % (4-13); Mean Corpuscular HGB 31.4 pg (26.0-34.0); Mean Corpuscular Volume 98 fL (80-100); NEUTROPHILS ABSOLUTE AUTO 1.51 K/mm3 (1.96-9.15); NEUTROPHILS PERCENT AUTO 46 % (41-73); Platelet Count 173 K/mm3 (150-400); RDW Coefficient Variation 13.5 % (11.7-14.2); RDW Standard Deviation 47.8 fL (35.1-46.3); Red Blood Cell Count 3.44 M/mm3 (3.80-5.20); White Blood Cell Count 3.32 K/mm3 (4.00-11.30)
[2019-06-20 05:56] LABS: Albumin/Globulin Ratio 0.8 (0.8-1.8); Bilirubin, Total 0.2 mg/dL (0.1-1.0); Bun/Creatinine Ratio 24.3 (12.0-20.0); Calcium, Blood 8.9 mg/dL (8.5-10.1); Creatinine, Blood 1.07 mg/dL (0.40-1.00); Globulin, Blood 3.7 g/dL (2.2-4.0); Phosphorus, Blood 3.4 mg/dL (2.5-4.9); Potassium, Blood 3.7 mmol/L (3.5-5.5); Total Protein, Blood 6.7 g/dL (6.4-8.2)
--- NOTE | 2019-06-20 08:00 | NUR ---
PT IS ANXIOUS. DENIES PAIN. ALERT TO SELF, FAMILY, PRESIDENT. DATE, DOG. HARD TIME EXPRESSING THOUGHTS. SLOW TO FIND TO WORDS SOMETIMES. H/R REG, NO MURMER NOTED. NO TELE. LUNGS CLEAR, RESP EASY, UNLABORED. SHALLOW RESP. ON R/A. BT X4 LAST BM TODAY. INCONT URINE. BSC 1 ASST. BED IN LOW POSITION, CALL LITE IN REACH, BED ALARM ON FOR SAFETY
--- NOTE | 2019-06-20 14:40 | NUR ---
pt has been anxious today. have worked with her to be more calm. admin anx med as avail. may see daughter this after noon. dr looking for d/c plan for next few days. requested daughter bring in her dog to visit and leave pix of dog for her comfort. no other concerns at this time. bed in low position, call lite in reach. bed alarm on for safety
--- NOTE | 2019-06-21 03:10 | NUR ---
SHIFT SUMMARY- PT. AGITATED T/O THE NIGHT. ATTEMPTING TO GET OUT OF BED. PT. CALMED AND REPOSITIONED FOR COMFORT SEVERAL TIMES DURING THE SHIFT, BUT CONTINUED TO BE ANXIOUS AND AGITATED. PRN MEDICATION GIVEN PER EMAR. PT. INCONTINENT, ATTENDS IN PLACE. NO APPARENT DISTRESS NOTED, DENIES NEEDS AT THIS TIME. CALL LIGHT WITHIN REACH, SIDE RAILS UP X2, AND BED ALARM ON. WILL CONT TO MONITOR.
[2019-06-21 05:24] LABS: Albumin, Blood 3.4 g/dL (3.4-5.0); Anion Gap 8 mmol/L (6-16); Blood Urea Nitrogen 15 mg/dL (8-24); Bun/Creatinine Ratio 18.2 (12.0-20.0); CO2, Blood 27 mmol/L (21-32); Chloride, Blood 110 mmol/L (98-108); Creatinine, Blood 0.82 mg/dL (0.40-1.00); Glomerular Filtration Rate >60 (60-); Glucose, Blood 140 mg/dL (70-99); Magnesium, Blood 1.7 mg/dL (1.6-2.4); Phosphorus, Blood 2.9 mg/dL (2.5-4.9); Potassium, Blood 3.6 mmol/L (3.5-5.5); Sodium, Blood 145 mmol/L (136-145)
[2019-06-21 05:29] LABS: BASOPHILS ABSOLUTE AUTO 0.02 K/mm3 (0.00-0.23); BASOPHILS PERCENT AUTO 1 % (0-2); EOSINOPHILS ABSOLUTE AUTO 0.13 K/mm3 (0.00-0.68); EOSINOPHILS PERCENT AUTO 4 % (0-6); Hematocrit 36.4 % (33.0-51.0); IMMATURE GRAN ABSOLUTE AUTO 0.01 K/mm3 (0.00-0.10); IMMATURE GRAN PERCENT AUTO 0 % (0-1); LYMPHOCYTES ABSOLUTE AUTO 0.88 K/mm3 (0.84-5.20); LYMPHOCYTES PERCENT AUTO 28 % (21-46); MONOCYTES ABSOLUTE AUTO 0.38 K/mm3 (0.16-1.47); MONOCYTES PERCENT AUTO 12 % (4-13); Mean Corpuscular HGB 31.7 pg (26.0-34.0); Mean Corpuscular Volume 96 fL (80-100); NEUTROPHILS ABSOLUTE AUTO 1.78 K/mm3 (1.96-9.15); NEUTROPHILS PERCENT AUTO 56 % (41-73); Platelet Count 184 K/mm3 (150-400); RDW Coefficient Variation 13.2 % (11.7-14.2); RDW Standard Deviation 47.3 fL (35.1-46.3); Red Blood Cell Count 3.78 M/mm3 (3.80-5.20)
--- NOTE | 2019-06-21 08:26 | NUR ---
DR. KIM AWARE OF BP AM BP 171/95. ORDERED 12.[address] KIM CALLED & INFORMED OF BP. STATED HE WILL REVIEW CHART & ORDER MEDS IF NEEDED.
--- NOTE | 2019-06-21 17:00 | NUR ---
SHIFT SUMMARY PT FORGETFUL BUT COOPERATIVE. PT AMBULATING THROUGHOUT THE DAY WITH MINIMAL ASSIST/GAIT BELT/ ONE HANDED WALKER. FAMILY AT BEDSIDE MOST THE DAY. AWAITING ACCEPTENCE TO [facility] HENDRIX. NO OTHER CHANGES IN ASSESSMENT AT THIS TIME. VSS. WILL CONTINUE TO MONITOR UNTIL TURNOVER IS COMPLETE.
--- NOTE | 2019-06-22 03:17 | NUR ---
SHIFT SUMMARY- PT. SITTING UP IN CHAIR AT START OF THE SHIFT, CHAIR ALARM IN PLACE. PT. CONFUSED AND GETTING UP FROM THE CHAIR W/O ASSISTANCE. FOR SAFETY PRECAUTIONS ASSISTED PT. BACK INTO BED AND REPOSITIONED FOR COMFORT. SCHEDULED MEDS GIVEN, PT. TOLERATED WELL. PT. ATTEMPTED TO GET OUT OF BED SEVERAL TIMES, BUT ABLE TO FALL ASLEEP LATER DURING THE NIGHT. NO ACUTE ISSUES OVERNIGHT, AWAITING FOR PLACEMENT AT . PT. ASLEEP COMFORTABLY IN BED, NO APPARENT DISTRESS NOTED. CALL LIGHT WITHIN REACH, SIDE RAILS UP X2, AND BED ALARM ON. WILL CONT TO MONITOR.
[2019-06-22 07:10] LABS: Albumin, Blood 3.2 g/dL (3.4-5.0); Anion Gap 6 mmol/L (6-16); Blood Urea Nitrogen 23 mg/dL (8-24); Bun/Creatinine Ratio 23.2 (12.0-20.0); CO2, Blood 29 mmol/L (21-32); Calcium, Blood 8.8 mg/dL (8.5-10.1); Chloride, Blood 110 mmol/L (98-108); Creatinine, Blood 0.99 mg/dL (0.40-1.00); Glomerular Filtration Rate 57 (60-); Glucose, Blood 131 mg/dL (70-99); Magnesium, Blood 1.8 mg/dL (1.6-2.4); Phosphorus, Blood 3.3 mg/dL (2.5-4.9); Potassium, Blood 3.8 mmol/L (3.5-5.5); Sodium, Blood 145 mmol/L (136-145)
[2019-06-22] MEDS ORDERED: ACET325 PO (17:06)
[2019-06-22] MEDS ORDERED: DOCU100 PO (17:06)
[2019-06-22] MEDS ORDERED: LIDO700A20 TOP (17:07)
[2019-06-22] MEDS ORDERED: Milk Of Ma400 MG/5 M PO (17:08)
[2019-06-22] MEDS ORDERED: METO25ER PO (17:11)
[2019-06-22] MEDS ORDERED: QUET100 PO (17:14)
[2019-06-22] MEDS ORDERED: Senna8.6 MG PO (17:15)
--- NOTE | 2019-06-22 17:24 | NUR ---
PT DISCHARGED. PT DISCAHRGED IN STABLE CONDITION WITH VSS. PT & CAREGIVER EDUCATED ON DC INSTRUCTIONS. DENIES FURTEHR NEED FOR INSRTUCTION. PT IV REMOVED & INTACT. PT WHEELED OUT BY STORAGE BATTERY TESTER & DRIVEN HOME BY CAREGIVER.
== END 2019-06-22 17:26 | disposition home health service (06) | DRG 682 ==
LOC: ER 17:23 → MEDS 17:24
PROVIDERS: Emergency Medicine; Hospitalist; Internal Medicine; Internal Medicine Nephrology; Physician Assistant; ADMIT Internal Medicine
DX: N17.9 Acute kidney failure, unspecified (principal); G93.41 Metabolic encephalopathy; I69.354 Hemiplegia and hemiparesis following cerebral infarction affecting left non-dominant side; R45.851 Suicidal ideations; F03.91 Unspecified dementia, unspecified severity, with behavioral disturbance; E87.0 Hyperosmolality and hypernatremia; N39.0 Urinary tract infection, site not specified; F43.10 Post-traumatic stress disorder, unspecified; F41.8 Other specified anxiety disorders; Z90.12 Acquired absence of left breast and nipple; Z86.12 Personal history of poliomyelitis; Z79.82 Long term (current) use of aspirin; Z79.84 Long term (current) use of oral hypoglycemic drugs; B00.9 Herpesviral infection, unspecified; E05.80 Other thyrotoxicosis without thyrotoxic crisis or storm; N18.3 Chronic kidney disease, stage 3 (moderate); E11.22 Type 2 diabetes mellitus with diabetic chronic kidney disease; I12.9 Hypertensive chronic kidney disease with stage 1 through stage 4 chronic kidney disease, or unspecified chronic kidney disease; B02.9 Zoster without complications; D72.819 Decreased white blood cell count, unspecified; K21.9 Gastro-esophageal reflux disease without esophagitis; E86.9 Volume depletion, unspecified; E88.09 Other disorders of plasma-protein metabolism, not elsewhere classified; D63.1 Anemia in chronic kidney disease; R62.7 Adult failure to thrive; I69.320 Aphasia following cerebral infarction; T37.5X5A Adverse effect of antiviral drugs, initial encounter; Y92.239 Unspecified place in hospital as the place of occurrence of the external cause
CPT/HCPCS: 36415; 70450; 71045; 76770; 80053; 80069; 81001; 82947; 83036; 83735; 84100; 84443; 85018; 85025; 85610; 85730; 87086; 87205; 93005; 93010; 96360; 96361; 96372-59; 97110; 97116; 97161; 97166; 97530; 97535; 99285-25; A9270; C9113; J1630; J1650; J1956; J2060; J7030; P9612

== ENCOUNTER → 2019-08-27 | Outpatient (CLI) | payer MEDICARE, BC ==
[~2019-08-27] MED LIST changes: +Bentyl20 MG PO; +Buspirone HCl15 MG PO; +Clonazepam0.5 MG PO; +LIDO700A20 TOP; +METO25ER PO; +Milk Of Ma400 MG/5 M PO; +PANT20 PO; +QUET100 PO; +Senna8.6 MG PO; +TRAZ100 PO; +VALACYCLOVIR1000 MG PO
[2019-08-27 13:57] LABS: Bilirubin, Urine Neg (Neg); Blood, Urine Neg (Neg); Glucose Qualitative, Urine Neg (Neg); Ketones, Urine Neg (Neg); Leukocyte Esterase, Urine Neg (Neg); Nitrite, Urine Neg (Neg); Protein, Urine Neg (Neg); Specific Gravity, Urine 1.015 (1.003-1.022); Urobilinogen, Urine NORM (Normal)
[2019-08-27 14:17] LABS: Appearance, Urine Clear (Clear); Color, Urine Yellow (P-Yellow)
== END | disposition home or self-care (01) ==
LOC: LAB SHORT 12:00 → LAB 12:00
PROVIDERS: Nurse Practitioner Family
DX: N39.0 Urinary tract infection, site not specified (principal)
CPT/HCPCS: 81003; 87077; 87086; 87186

== ENCOUNTER → 2019-09-08 | Outpatient (CLI) | payer BC | END | disposition home or self-care (01) | LOC: LAB EV 11:40 → LAB SHORT 11:40 | DX: M06.09 Rheumatoid arthritis without rheumatoid factor, multiple sites (principal); R30.0 Dysuria | CPT/HCPCS: 87086 ==

== ENCOUNTER 2019-10-22 10:49 | Emergency (ER) | payer BC ==
[~2019-10-22] VITALS: Ht 157.5 cm; Wt 62.6 kg
[2019-10-22] MEDS ORDERED: GABA300 PO (11:33)
[2019-10-22] MEDS ORDERED: MELATONIN5 M1 PO (11:33)
[2019-10-22] MEDS ORDERED: ZYRTEC10 M2 PO (11:33)
[2019-10-22] MEDS ORDERED: VICKS VAPORUB O50 GM (11:34)
[2019-10-22] MEDS ORDERED: METO25ER PO (11:34)
[2019-10-22] MEDS ORDERED: ACET325 PO (11:34)
[2019-10-22] MEDS ORDERED: KRILL OIL500 MG PO (11:35)
[2019-10-22] MEDS ORDERED: METF500 PO (11:35)
[2019-10-22] MEDS ORDERED: THERA-D2000 UNIT PO (11:35)
[2019-10-22] MEDS ORDERED: Citrucel500 MG (11:35)
[2019-10-22] MEDS ORDERED: AZO CRANBERRY1 EAC1 (11:36)
[2019-10-22] MEDS ORDERED: MAGNESIUM OXID500 MG PO (11:36)
[2019-10-22] MEDS ORDERED: LEVSOD100 PO (11:36)
[2019-10-22] MEDS ORDERED: ASPIR 8181 MG PO (11:36)
[2019-10-22] MEDS ORDERED: MILK OF MA400 MG/5 M (11:36)
[2019-10-22] MEDS ORDERED: Colace100 MG PO (11:36)
[2019-10-22] MEDS ORDERED: SENNA LAXATIVE8.6 MG PO (11:37)
[2019-10-22] MEDS ORDERED: OMEPRAZOLE20 MG PO (11:37)
[2019-10-22] MEDS ORDERED: LIDO5TO (11:37)
[2019-10-22] MEDS ORDERED: Bentyl20 MG PO (11:37)
[2019-10-22] MEDS ORDERED: Ropinirole HCl0.5 MG PO (11:37)
[2019-10-22] MEDS ORDERED: MIRT30ST PO (11:38)
[2019-10-22 11:54] LABS: Source, Urine Catheter
[2019-10-22 11:56] LABS: Bilirubin, Urine Neg (Neg); Blood, Urine Neg (Neg); Glucose Qualitative, Urine Neg (Neg); Ketones, Urine Neg (Neg); Leukocyte Esterase, Urine Neg (Neg); Nitrite, Urine Neg (Neg); Protein, Urine Neg (Neg); Urobilinogen, Urine NORM (Normal)
[2019-10-22 12:09] LABS: BASOPHILS ABSOLUTE AUTO 0.02 K/mm3 (0.00-0.23); BASOPHILS PERCENT AUTO 0 % (0-2); EOSINOPHILS ABSOLUTE AUTO 0.08 K/mm3 (0.00-0.68); EOSINOPHILS PERCENT AUTO 2 % (0-6); Hematocrit 34.3 % (33.0-51.0); Hemoglobin 10.6 g/dL (11.5-16.0); IMMATURE GRAN ABSOLUTE AUTO 0.01 K/mm3 (0.00-0.10); IMMATURE GRAN PERCENT AUTO 0 % (0-1); LYMPHOCYTES ABSOLUTE AUTO 1.05 K/mm3 (0.84-5.20); LYMPHOCYTES PERCENT AUTO 21 % (21-46); MONOCYTES ABSOLUTE AUTO 0.47 K/mm3 (0.16-1.47); MONOCYTES PERCENT AUTO 9 % (4-13); Mean Corpuscular HGB 30.3 pg (26.0-34.0); Mean Corpuscular HGB Conc 30.9 g/dL (31.5-36.5); Mean Corpuscular Volume 98 fL (80-100); NEUTROPHILS ABSOLUTE AUTO 3.42 K/mm3 (1.96-9.15); NEUTROPHILS PERCENT AUTO 68 % (41-73); Platelet Count 190 K/mm3 (150-400); RDW Coefficient Variation 13.2 % (11.7-14.2); RDW Standard Deviation 47.1 fL (35.1-46.3); White Blood Cell Count 5.05 K/mm3 (4.00-11.30)
[2019-10-22 12:15] LABS: Appearance, Urine Clear (Clear); Color, Urine Yellow (P-Yellow)
[2019-10-22 12:26] LABS: Albumin, Blood 3.5 g/dL (3.4-5.0); Albumin/Globulin Ratio 0.9 (0.8-1.8); Bilirubin, Total 0.4 mg/dL (0.1-1.0); Bun/Creatinine Ratio 25.7 (12.0-20.0); Calcium, Blood 9.1 mg/dL (8.5-10.1); Creatinine, Blood 1.01 mg/dL (0.40-1.00); Globulin, Blood 3.9 g/dL (2.2-4.0); Potassium, Blood 4.3 mmol/L (3.5-5.5); Total Protein, Blood 7.4 g/dL (6.4-8.2)
== END 2019-10-22 15:44 | disposition home or self-care (01) ==
LOC: ER 10:49
PROVIDERS: Emergency Medicine
DX: F41.8 Other specified anxiety disorders (principal); E11.9 Type 2 diabetes mellitus without complications; F03.90 Unspecified dementia, unspecified severity, without behavioral disturbance, psychotic disturbance, mood disturbance, and anxiety; Z88.0 Allergy status to penicillin; Z79.899 Other long term (current) drug therapy; Z79.82 Long term (current) use of aspirin; Z79.84 Long term (current) use of oral hypoglycemic drugs; Z79.01 Long term (current) use of anticoagulants; Z86.73 Personal history of transient ischemic attack (TIA), and cerebral infarction without residual deficits
CPT/HCPCS: 36415; 80053; 81003; 85025; 99284; P9612

== ENCOUNTER → 2019-12-16 | Outpatient (CLI) | payer BC ==
[~2019-12-16] MED LIST changes: +ASPIR 8181 MG PO; +AZO CRANBERRY1 EAC1; +Citrucel500 MG; +Colace100 MG PO; +GABA300 PO; +KRILL OIL500 MG PO; +LEVSOD100 PO; +LIDO5TO; +MAGNESIUM OXID500 MG PO; +MELATONIN5 M1 PO; +MILK OF MA400 MG/5 M; +MIRT30ST PO; +OMEPRAZOLE20 MG PO; +Ropinirole HCl0.5 MG PO; +SENNA LAXATIVE8.6 MG PO; +THERA-D2000 UNIT PO; +VICKS VAPORUB O50 GM; +ZYRTEC10 M2 PO
== END ==
LOC: LAB SHORT 15:30 → LAB EV 15:30
DX: N30.00 Acute cystitis without hematuria (principal)
CPT/HCPCS: 87077; 87086; 87186

== ENCOUNTER → 2020-02-08 | Outpatient (CLI) | payer BC | END | disposition home or self-care (01) | LOC: LAB SHORT 16:45 → LAB EV 16:45 | DX: R30.0 Dysuria (principal) | CPT/HCPCS: 87077; 87086; 87186 ==

== ENCOUNTER 2020-02-16 19:03 | Emergency (ER) | payer BC ==
[~2020-02-16] VITALS: Ht 157.5 cm; Wt 68.0 kg
[2020-02-16 20:51] LABS: BASOPHILS ABSOLUTE AUTO 0.03 K/mm3 (0.00-0.23); BASOPHILS PERCENT AUTO 0 % (0-2); EOSINOPHILS ABSOLUTE AUTO 0.22 K/mm3 (0.00-0.68); EOSINOPHILS PERCENT AUTO 3 % (0-6); Hematocrit 38.7 % (33.0-51.0); Hemoglobin 11.8 g/dL (11.5-16.0); IMMATURE GRAN PERCENT AUTO 1 % (0-1); LYMPHOCYTES ABSOLUTE AUTO 1.46 K/mm3 (0.84-5.20); LYMPHOCYTES PERCENT AUTO 19 % (21-46); MONOCYTES ABSOLUTE AUTO 0.76 K/mm3 (0.16-1.47); MONOCYTES PERCENT AUTO 10 % (4-13); Mean Corpuscular HGB 29.2 pg (26.0-34.0); Mean Corpuscular HGB Conc 30.5 g/dL (31.5-36.5); Mean Corpuscular Volume 96 fL (80-100); NEUTROPHILS ABSOLUTE AUTO 4.95 K/mm3 (1.96-9.15); NEUTROPHILS PERCENT AUTO 66 % (41-73); Platelet Count 211 K/mm3 (150-400); RDW Coefficient Variation 15.1 % (11.7-14.2); RDW Standard Deviation 53.9 fL (35.1-46.3); Red Blood Cell Count 4.04 M/mm3 (3.80-5.20); White Blood Cell Count 7.52 K/mm3 (4.00-11.30)
[2020-02-16 21:08] LABS: Albumin, Blood 3.8 g/dL (3.4-5.0); Albumin/Globulin Ratio 0.8 (0.8-1.8); Bilirubin, Total 0.2 mg/dL (0.1-1.0); Bun/Creatinine Ratio 25.8 (12.0-20.0); Calcium, Blood 9.3 mg/dL (8.5-10.1); Creatinine, Blood 1.59 mg/dL (0.40-1.00); Globulin, Blood 4.7 g/dL (2.2-4.0); Potassium, Blood 4.6 mmol/L (3.5-5.5); Total Protein, Blood 8.5 g/dL (6.4-8.2)
[2020-02-16] MEDS ORDERED: XARELTO1 EACH PO (22:32)
== END 2020-02-16 22:55 | disposition home or self-care (01) ==
LOC: ER 19:03
PROVIDERS: Nurse Practitioner
DX: I82.422 Acute embolism and thrombosis of left iliac vein (principal); I82.412 Acute embolism and thrombosis of left femoral vein; I82.432 Acute embolism and thrombosis of left popliteal vein; I82.442 Acute embolism and thrombosis of left tibial vein; I82.452 Acute embolism and thrombosis of left peroneal vein; Z86.73 Personal history of transient ischemic attack (TIA), and cerebral infarction without residual deficits; I82.812 Embolism and thrombosis of superficial veins of left lower extremity; I10 Essential (primary) hypertension; E11.9 Type 2 diabetes mellitus without complications; F03.90 Unspecified dementia, unspecified severity, without behavioral disturbance, psychotic disturbance, mood disturbance, and anxiety; Z88.0 Allergy status to penicillin; Z79.899 Other long term (current) drug therapy; Z79.84 Long term (current) use of oral hypoglycemic drugs; Z79.82 Long term (current) use of aspirin
CPT/HCPCS: 36415; 80053; 83880; 85025; 93005; 93010; 93971; 99284-25

== ENCOUNTER → 2020-04-15 | Outpatient (CLI) | payer MEDICARE, BC ==
[~2020-04-15] MED LIST changes: +XARELTO1 EACH PO
== END ==
LOC: LAB SHORT 16:29 → LAB EV 16:29
DX: N39.0 Urinary tract infection, site not specified (principal)
CPT/HCPCS: 87086

== ENCOUNTER 2021-02-17 16:58 | Emergency (ER) | payer BC ==
[~2021-02-17] VITALS: Ht 157.5 cm; Wt 77.1 kg
[2021-02-17 17:58] LABS: Alanine Aminotransfer (ALT/SGP 17 U/L (12-78); Albumin/Globulin Ratio 0.9 (0.8-1.8); Alk Phos 46 U/L (50-136); Anion Gap 4 mmol/L (6-16); Aspartate Aminotrans (AST/SGOT 31 U/L (12-37); Bilirubin, Total 0.4 mg/dL (0.1-1.0); Blood Urea Nitrogen 23 mg/dL (8-24); Bun/Creatinine Ratio 16.2 (12.0-20.0); CO2, Blood 24 mmol/L (21-32); Calcium, Blood 9.5 mg/dL (8.5-10.1); Chloride, Blood 110 mmol/L (98-108); Creatinine, Blood 1.42 mg/dL (0.40-1.00); Globulin, Blood 4.3 g/dL (2.2-4.0); Glomerular Filtration Rate 38 (60-); Glucose, Blood 109 mg/dL (70-99); Potassium, Blood 4.8 mmol/L (3.5-5.5); Sodium, Blood 138 mmol/L (136-145); Total Protein, Blood 8.3 g/dL (6.4-8.2); Troponin I <0.015 ng/mL (0.000-0.040)
[2021-02-17 18:13] LABS: BASOPHILS ABSOLUTE AUTO 0.03 K/mm3 (0.00-0.23); BASOPHILS PERCENT AUTO 1 % (0-2); EOSINOPHILS ABSOLUTE AUTO 0.07 K/mm3 (0.00-0.68); EOSINOPHILS PERCENT AUTO 2 % (0-6); Hematocrit 40.8 % (33.0-51.0); Hemoglobin 13.1 g/dL (11.5-16.0); IMMATURE GRAN ABSOLUTE AUTO 0.01 K/mm3 (0.00-0.10); IMMATURE GRAN PERCENT AUTO 0 % (0-1); LYMPHOCYTES ABSOLUTE AUTO 1.18 K/mm3 (0.84-5.20); LYMPHOCYTES PERCENT AUTO 27 % (21-46); MONOCYTES ABSOLUTE AUTO 0.38 K/mm3 (0.16-1.47); MONOCYTES PERCENT AUTO 9 % (4-13); Mean Corpuscular HGB 31.2 pg (26.0-34.0); Mean Corpuscular HGB Conc 32.1 g/dL (31.5-36.5); Mean Corpuscular Volume 97 fL (80-100); NEUTROPHILS ABSOLUTE AUTO 2.73 K/mm3 (1.96-9.15); NEUTROPHILS PERCENT AUTO 62 % (41-73); Platelet Count 251 K/mm3 (150-400); RDW Coefficient Variation 13.9 % (11.7-14.2); RDW Standard Deviation 49.9 fL (35.1-46.3)
[2021-02-17] MEDS ORDERED: XARELTO20 M1 PO (21:12)
[2021-02-17] MEDS ORDERED: FENO54 PO (21:12)
[2021-02-17] MEDS ORDERED: ROPINIROLE HCL1 MG PO (21:13)
[2021-02-17] MEDS ORDERED: QUETIAPINE FUM PO (21:13)
[2021-02-17] MEDS ORDERED: GLIP2.5ER PO (21:14)
[2021-02-17] MEDS ORDERED: SYNTHROID100 MC6 PO (22:00)
== END 2021-02-17 22:35 | disposition home or self-care (01) ==
LOC: ER 16:58
PROVIDERS: Physician Assistant
DX: F41.9 Anxiety disorder, unspecified (principal); I10 Essential (primary) hypertension; Z79.82 Long term (current) use of aspirin; Z79.84 Long term (current) use of oral hypoglycemic drugs; Z79.899 Other long term (current) drug therapy; Z79.01 Long term (current) use of anticoagulants
CPT/HCPCS: 36415; 71046; 80053; 84484; 85025; 93005; 93010; 96374; 99284-25; A9270; J0360

== ENCOUNTER → 2021-08-16 | Outpatient (CLI) | payer BC ==
[~2021-08-16] MED LIST changes: +FENO54 PO; +GLIP2.5ER PO; +QUETIAPINE FUM PO; +ROPINIROLE HCL1 MG PO; +SYNTHROID100 MC6 PO; +XARELTO20 M1 PO
[2021-08-17 12:34] LABS: Source, Urine Clean Catch
[2021-08-17 12:59] LABS: Appearance, Urine Clear (Clear); Bilirubin, Urine Neg (Neg); Blood, Urine Neg (Neg); Color, Urine Yellow (P-Yellow); Glucose Qualitative, Urine Neg (Neg); Ketones, Urine Neg (Neg); Leukocyte Esterase, Urine 1+ (Neg); Nitrite, Urine Pos (Neg); Protein, Urine Neg (Neg); Specific Gravity, Urine 1.015 (1.003-1.022); Urobilinogen, Urine NORM (Normal); pH, Urine 6.5 (5.0-8.0)
[2021-08-17 13:18] LABS: Red Blood Cells, Urine 0-2 /hpf (0-2)
[2021-08-17 13:21] LABS: Bacteria Few /hpf; Squamous Epithelial Cells Rare /hpf (Few)
== END | disposition home or self-care (01) ==
LOC: LAB SHORT 11:00
PROVIDERS: Nurse Practitioner Family
DX: N39.0 Urinary tract infection, site not specified (principal); C50.919 Malignant neoplasm of unspecified site of unspecified female breast; C77.3 Secondary and unspecified malignant neoplasm of axilla and upper limb lymph nodes; D64.9 Anemia, unspecified; E03.9 Hypothyroidism, unspecified; E13.42 Other specified diabetes mellitus with diabetic polyneuropathy; E78.5 Hyperlipidemia, unspecified; F03.90 Unspecified dementia, unspecified severity, without behavioral disturbance, psychotic disturbance, mood disturbance, and anxiety; F41.8 Other specified anxiety disorders; H53.9 Unspecified visual disturbance; I10 Essential (primary) hypertension; I65.21 Occlusion and stenosis of right carotid artery; I69.354 Hemiplegia and hemiparesis following cerebral infarction affecting left non-dominant side; J20.9 Acute bronchitis, unspecified; K12.31 Oral mucositis (ulcerative) due to antineoplastic therapy; K57.32 Diverticulitis of large intestine without perforation or abscess without bleeding
CPT/HCPCS: 81001; 87077; 87086; 87186

== ENCOUNTER → 2021-09-16 | Outpatient (CLI) | payer BC ==
[2021-09-17 13:09] LABS: Appearance, Urine Clear (Clear); Bilirubin, Urine Neg (Neg); Blood, Urine Neg (Neg); Color, Urine Yellow (P-Yellow); Glucose Qualitative, Urine Neg (Neg); Ketones, Urine Neg (Neg); Leukocyte Esterase, Urine 1+ (Neg); Nitrite, Urine Neg (Neg); Protein, Urine 1+ (Neg); Urobilinogen, Urine NORM (Normal)
[2021-09-17 13:45] LABS: Bacteria Rare /hpf; Red Blood Cells, Urine 0-2 /hpf (0-2); Squamous Epithelial Cells Few /hpf (Few)
== END | disposition home or self-care (01) ==
LOC: LAB SHORT 12:00
PROVIDERS: Nurse Practitioner Family
DX: N39.0 Urinary tract infection, site not specified (principal)
CPT/HCPCS: 81001; 87077; 87086; 87186

== ENCOUNTER → 2021-10-11 | Outpatient (CLI) | payer BC ==
[2021-10-12 09:01] LABS: Source, Urine Clean Catch
[2021-10-12 09:58] LABS: Appearance, Urine Clear (Clear); Bilirubin, Urine Neg (Neg); Blood, Urine Neg (Neg); Color, Urine Yellow (P-Yellow); Glucose Qualitative, Urine Neg (Neg); Ketones, Urine Neg (Neg); Leukocyte Esterase, Urine Neg (Neg); Nitrite, Urine Neg (Neg); Protein, Urine Neg (Neg); Urobilinogen, Urine NORM (Normal); pH, Urine 6.5 (5.0-8.0)
== END | disposition home or self-care (01) ==
LOC: LAB 08:58 → LAB SHORT 08:58
PROVIDERS: Nurse Practitioner Family
DX: N39.0 Urinary tract infection, site not specified (principal)
CPT/HCPCS: 81003

== ENCOUNTER → 2021-11-16 | Outpatient (CLI) | payer BC ==
[2021-11-16 11:47] LABS: Source, Urine Voided
[2021-11-16 13:01] LABS: Appearance, Urine Cloudy (Clear); Bilirubin, Urine Neg (Neg); Blood, Urine 4+ (Neg); Color, Urine Yellow (P-Yellow); Glucose Qualitative, Urine Neg (Neg); Ketones, Urine Neg (Neg); Leukocyte Esterase, Urine 3+ (Neg); Nitrite, Urine Pos (Neg); Protein, Urine 3+ (Neg); Urobilinogen, Urine NORM (Normal)
[2021-11-16 13:18] LABS: White Blood Cells, Urine TNTC /hpf (0-5)
[2021-11-16 13:19] LABS: Bacteria Many /hpf; Squamous Epithelial Cells Not Seen /hpf (Few)
== END | disposition home or self-care (01) ==
LOC: LAB SHORT 11:42
PROVIDERS: Nurse Practitioner Family
DX: N39.0 Urinary tract infection, site not specified (principal)
CPT/HCPCS: 81001; 87077; 87086; 87186

== ENCOUNTER 2022-04-12 17:23 | Emergency (ER) | payer OTHER, BC ==
[~2022-04-12] VITALS: Ht 157.5 cm; Wt 81.7 kg
[~2022-04-12 17:23] MED LIST changes: +OXAYDO5 M1 PO
[2022-04-12] MEDS ORDERED: ALPR.5 PO ×2 (22:10→22:11)
[2022-04-12] MEDS ORDERED: AMLO5 PO (22:11)
[2022-04-12] MEDS ORDERED: BACLOFEN5 M1 PO (22:11)
[2022-04-12] MEDS ORDERED: XYZAL5 MG PO (22:12)
[2022-04-12] MEDS ORDERED: TRIM100 PO (22:12)
[2022-04-13] MEDS ORDERED: HYDR1TAB94 PO (01:18)
== END 2022-04-13 08:45 | disposition home or self-care (01) ==
LOC: ER 17:23
DX: S01.312A Laceration without foreign body of left ear, initial encounter (principal); W01.198A Fall on same level from slipping, tripping and stumbling with subsequent striking against other object, initial encounter; F03.90 Unspecified dementia, unspecified severity, without behavioral disturbance, psychotic disturbance, mood disturbance, and anxiety; I69.954 Hemiplegia and hemiparesis following unspecified cerebrovascular disease affecting left non-dominant side; E11.9 Type 2 diabetes mellitus without complications; I10 Essential (primary) hypertension; Z88.0 Allergy status to penicillin; Z79.899 Other long term (current) drug therapy; Z79.01 Long term (current) use of anticoagulants
CPT/HCPCS: 12013; 70450; 72125; 99284-25; A9270

== ENCOUNTER 2022-04-22 13:21 | Emergency (ER) | payer BC ==
[~2022-04-22] VITALS: Ht 177.8 cm; Wt 54.4 kg
[~2022-04-22 13:21] MED LIST changes: +BACLOFEN5 M1 PO; +TRIM100 PO; +XYZAL5 MG PO
== END 2022-04-22 17:26 | disposition home or self-care (01) ==
LOC: ER 13:21
DX: S43.005A Unspecified dislocation of left shoulder joint, initial encounter (principal); E11.9 Type 2 diabetes mellitus without complications; I10 Essential (primary) hypertension; Z79.899 Other long term (current) drug therapy; Z88.0 Allergy status to penicillin; Z88.1 Allergy status to other antibiotic agents; Z88.8 Allergy status to other drugs, medicaments and biological substances; Z86.73 Personal history of transient ischemic attack (TIA), and cerebral infarction without residual deficits; W18.30XA Fall on same level, unspecified, initial encounter
CPT/HCPCS: 73030; A9270

== ENCOUNTER 2022-05-01 15:45 | Emergency (ER) | payer BC, OTHER ==
[~2022-05-01] VITALS: Ht 162.6 cm; Wt 68.0 kg
[2022-05-01] MEDS ORDERED: HYDR1TAB94 PO (16:16)
== END 2022-05-01 17:19 | disposition home or self-care (01) ==
LOC: ER 15:45
DX: M54.2 Cervicalgia (principal); G89.29 Other chronic pain; E11.9 Type 2 diabetes mellitus without complications; I10 Essential (primary) hypertension; F03.90 Unspecified dementia, unspecified severity, without behavioral disturbance, psychotic disturbance, mood disturbance, and anxiety; Z86.73 Personal history of transient ischemic attack (TIA), and cerebral infarction without residual deficits; Z79.899 Other long term (current) drug therapy; Z79.01 Long term (current) use of anticoagulants; Z88.1 Allergy status to other antibiotic agents; Z88.0 Allergy status to penicillin; Z88.8 Allergy status to other drugs, medicaments and biological substances
CPT/HCPCS: A9270